=== PATIENT | female | born 1950 | race Caucasian/White ===

== ENCOUNTER 2019-04-08 16:14 | Inpatient (IN) ==
[2019-04-08] MEDS ORDERED: *HR* Dextrose 50 % in Water (Syg) 50 ML SYRINGE IVP PRN (21:08)
[2019-04-08] MEDS ORDERED: Dextrose Gel 15 GM/37.5 ML TUBE PO PRN ×2 (21:08)
[2019-04-08] MEDS ORDERED: D5% in Water 1,000 ML IVC PRN (21:08)
[2019-04-08] MEDS ORDERED: Mag Hydrox/Al Hydrox/Simeth 30 ML UDC PO PRN (21:15)
[2019-04-08] MEDS: Cholecalciferol (D-3) 1,000 UNIT (25MCG) TABLET PO SCH (22:29)
[2019-04-08] MEDS: Vitamin B Complex/Vit C/Vit E 1 EACH TABLET PO SCH (22:29)
[2019-04-08] MEDS: Melatonin 3 MG TABLET PO PRN (22:29)
[2019-04-08] MEDS: *HR* OxyCODONE/APAP 5/325 TABLET PO PRN (22:29)
[2019-04-08] MEDS: Gabapentin 300 MG CAPSULE PO SCH (22:29)
[2019-04-08] MEDS: Insulin LISPRO 300 UNITS/3 ML VIAL SQ SCH (22:30)
[2019-04-08] MEDS: VALERIAN ROOT PO SCH (22:32)
[2019-04-08] MEDS: [UNRECOGNIZED DRUG - OTHER] PO SCH (22:32)
[2019-04-08] MEDS: Ampicillin/Sulbactam 3,000 MG in 0.9 % Sodium Chloride Mini Bag 100 ML IVPB SCH (23:47)
[2019-04-09] MEDS: *HR* Enoxaparin 40 MG/0.4 ML SYRINGE SQ SCH (05:30)
[2019-04-09] MEDS: Ampicillin/Sulbactam 3,000 MG in 0.9 % Sodium Chloride Mini Bag 100 ML IVPB SCH ×3 (05:31→18:00)
[2019-04-09 05:39] LABS: Basophils # 0.1 K/mcL (0.0-0.2); Basophils % 0.8 %; Eosinophils # 0.6 K/mcL (0.0-0.6); Eosinophils % 4.9 %; Hematocrit 31.2 % (35.3-44.9); Hemoglobin 9.9 g/dL (11.5-15.4); Immature Granulocytes % 1.1 % (0-4); Lymphocytes # 3.9 K/mcL (0.6-4.6); Mean Corpuscular HGB Conc 31.7 g/dL (31.6-35.5); Mean Corpuscular Hemoglobin 27.2 pg (28.0-33.3); Mean Corpuscular Volume 85.7 fL (83.0-100.0); Mean Platelet Volume 8.9 fL (9.4-12.4); Monocytes # 0.6 K/mcL (0.0-1.3); Monocytes % 5.5 %; Neutrophils # 6.2 K/mcL (1.6-8.9); Platelet Count 264 K/mcL (140-400); Red Blood Count 3.64 M/mcL (3.82-4.97); Red Cell Distribution Width 13.1 % (11.5-14.5); Segmented Neutrophils % 53.7 %; White Blood Count 11.6 K/mcL (4.3-11.1)
[2019-04-09 05:55] LABS: Calcium 8.4 mg/dL (8.6-10.3); Potassium 4.3 mEq/L (3.5-5.1)
[2019-04-09] MEDS: Vitamin B Complex/Vit C/Vit E 1 EACH TABLET PO SCH (21:03)
[2019-04-09] MEDS: VALERIAN ROOT PO SCH (21:03)
[2019-04-09] MEDS: Gabapentin 300 MG CAPSULE PO SCH (21:03)
[2019-04-09] MEDS: Cholecalciferol (D-3) 1,000 UNIT (25MCG) TABLET PO SCH (21:03)
[2019-04-09] MEDS: [UNRECOGNIZED DRUG - OTHER] PO SCH (21:03)
[2019-04-09] MEDS: *HR* OxyCODONE/APAP 5/325 TABLET PO PRN (21:04)
[2019-04-09] MEDS: Melatonin 3 MG TABLET PO PRN (21:04)
[2019-04-09] MEDS: Insulin LISPRO 300 UNITS/3 ML VIAL SQ SCH (21:05)
[2019-04-10] MEDS: Ampicillin/Sulbactam 3,000 MG in 0.9 % Sodium Chloride Mini Bag 100 ML IVPB SCH ×4 (01:00→22:00)
[2019-04-10] MEDS: *HR* Enoxaparin 40 MG/0.4 ML SYRINGE SQ SCH (06:26)
[2019-04-10] MEDS: Insulin LISPRO 300 UNITS/3 ML VIAL SQ SCH ×4 (08:25→21:46)
[2019-04-10] MEDS: Gabapentin 300 MG CAPSULE PO SCH ×4 (08:30→21:46)
[2019-04-10] MEDS: FLUoxetine 20 MG CAPSULE PO SCH (08:30)
[2019-04-10] MEDS: Furosemide 40 MG TABLET PO SCH (08:30)
[2019-04-10] MEDS: *HR* Glimepiride 4 MG TABLET PO SCH (08:30)
[2019-04-10] MEDS: Insulin DETEMIR 100 UNIT/ML X5UNITS SQ SCH (08:31)
[2019-04-10] MEDS: Acyclovir 200 MG CAPSULE PO SCH ×2 (16:57→21:47)
[2019-04-10] MEDS: *HR* OxyCODONE/APAP 5/325 TABLET PO PRN ×2 (16:58→21:48)
[2019-04-10] MEDS: Nystatin SUSP 5 ML UD.LIQ PO SCH ×2 (16:59→21:46)
[2019-04-10] MEDS ORDERED: Ampicillin/Sulbactam 3,000 MG in 0.9 % Sodium Chloride Mini Bag 100 ML IVPB SCH (20:00)
[2019-04-10] MEDS: [UNRECOGNIZED DRUG - OTHER] PO SCH (21:46)
[2019-04-10] MEDS: VALERIAN ROOT PO SCH (21:46)
[2019-04-10] MEDS: Lactobacillus 1 EACH CAP.SPRINK PO SCH (21:46)
[2019-04-10] MEDS: Terconazole Vag CRM 20 GM TUBE VG SCH (21:47)
[2019-04-10] MEDS: Ascorbic Acid 500 MG TABLET PO SCH (21:47)
[2019-04-10] MEDS: Vitamin B Complex/Vit C/Vit E 1 EACH TABLET PO SCH (21:47)
[2019-04-10] MEDS: Cholecalciferol (D-3) 1,000 UNIT (25MCG) TABLET PO SCH (21:47)
[2019-04-10] MEDS: Melatonin 3 MG TABLET PO PRN (21:48)
[2019-04-11 05:05] LABS: Hematocrit 30.9 % (35.3-44.9); Hemoglobin 9.8 g/dL (11.5-15.4); Mean Corpuscular HGB Conc 31.7 g/dL (31.6-35.5); Mean Corpuscular Hemoglobin 26.9 pg (28.0-33.3); Mean Corpuscular Volume 84.9 fL (83.0-100.0); Mean Platelet Volume 9.6 fL (9.4-12.4); Platelet Count 238 K/mcL (140-400); Red Blood Count 3.64 M/mcL (3.82-4.97); Red Cell Distribution Width 13.2 % (11.5-14.5); White Blood Count 10.9 K/mcL (4.3-11.1)
[2019-04-11 05:21] LABS: Albumin 2.8 g/dL (3.5-5.7); Albumin/Globulin Ratio 0.9 (1.1-2.2); Bilirubin,Total 0.2 mg/dL (0.3-1.0); Calcium 8.7 mg/dL (8.6-10.3); Potassium 3.9 mEq/L (3.5-5.1); Total Protein 5.8 g/dL (6.4-8.9)
[2019-04-11] MEDS: Ampicillin/Sulbactam 3,000 MG in 0.9 % Sodium Chloride Mini Bag 100 ML IVPB SCH ×3 (06:20→22:23)
[2019-04-11] MEDS: *HR* Enoxaparin 40 MG/0.4 ML SYRINGE SQ SCH (06:20)
[2019-04-11] MEDS: Insulin LISPRO 300 UNITS/3 ML VIAL SQ SCH ×4 (07:38→20:08)
[2019-04-11] MEDS: Insulin DETEMIR 100 UNIT/ML X5UNITS SQ SCH (07:39)
[2019-04-11] MEDS: *HR* Glimepiride 4 MG TABLET PO SCH (07:41)
[2019-04-11] MEDS: Ascorbic Acid 500 MG TABLET PO SCH ×2 (07:41→20:00)
[2019-04-11] MEDS: *HR* OxyCODONE/APAP 5/325 TABLET PO PRN ×3 (07:41→20:00)
[2019-04-11] MEDS: Nystatin SUSP 5 ML UD.LIQ PO SCH ×4 (07:41→20:00)
[2019-04-11] MEDS: FLUoxetine 20 MG CAPSULE PO SCH (07:41)
[2019-04-11] MEDS: Gabapentin 300 MG CAPSULE PO SCH ×4 (07:41→20:00)
[2019-04-11] MEDS: Lactobacillus 1 EACH CAP.SPRINK PO SCH ×2 (07:41→20:00)
[2019-04-11] MEDS: Furosemide 40 MG TABLET PO SCH (07:42)
[2019-04-11] MEDS: Acyclovir 200 MG CAPSULE PO SCH ×3 (07:42→21:47)
[2019-04-11 13:28] LABS: % Iron Saturation 16 % (15-50); Iron 35 mcg/dL (50-170); Transferrin 159 mg/dL (203-362)
[2019-04-11 13:35] LABS: Prealbumin 18.4 mg/dL (17.0-34.0)
[2019-04-11] MEDS: Vitamin B Complex/Vit C/Vit E 1 EACH TABLET PO SCH (19:58)
[2019-04-11] MEDS: Cholecalciferol (D-3) 1,000 UNIT (25MCG) TABLET PO SCH (20:00)
[2019-04-11] MEDS: Melatonin 3 MG TABLET PO PRN (20:01)
[2019-04-11] MEDS: Terconazole Vag CRM 20 GM TUBE VG SCH (20:09)
[2019-04-12] MEDS: VALERIAN ROOT PO SCH ×2 (05:45→20:34)
[2019-04-12] MEDS: [UNRECOGNIZED DRUG - OTHER] PO SCH ×2 (05:45→20:34)
[2019-04-12] MEDS: Ampicillin/Sulbactam 3,000 MG in 0.9 % Sodium Chloride Mini Bag 100 ML IVPB SCH ×3 (05:58→22:07)
[2019-04-12] MEDS: *HR* OxyCODONE/APAP 5/325 TABLET PO PRN ×2 (05:58→22:06)
[2019-04-12] MEDS: *HR* Enoxaparin 40 MG/0.4 ML SYRINGE SQ SCH (05:58)
[2019-04-12] MEDS: Insulin LISPRO 300 UNITS/3 ML VIAL SQ SCH ×5 (08:16→20:37)
[2019-04-12] MEDS: Insulin DETEMIR 100 UNIT/ML X5UNITS SQ SCH ×2 (08:17→09:28)
[2019-04-12] MEDS: Acyclovir 200 MG CAPSULE PO SCH ×3 (08:19→20:36)
[2019-04-12] MEDS: FLUoxetine 20 MG CAPSULE PO SCH ×2 (08:20→09:08)
[2019-04-12] MEDS: Iron Polysaccharide Complex 150 MG CAPSULE PO SCH (08:20)
[2019-04-12] MEDS: Furosemide 40 MG TABLET PO SCH ×2 (08:20→09:07)
[2019-04-12] MEDS: Nystatin SUSP 5 ML UD.LIQ PO SCH ×4 (08:21→20:38)
[2019-04-12] MEDS: *HR* Glimepiride 4 MG TABLET PO SCH ×2 (08:21→09:06)
[2019-04-12] MEDS: Gabapentin 300 MG CAPSULE PO SCH ×5 (08:21→20:34)
[2019-04-12] MEDS: Ascorbic Acid 500 MG TABLET PO SCH ×2 (08:21→20:35)
[2019-04-12] MEDS: Lactobacillus 1 EACH CAP.SPRINK PO SCH ×2 (08:21→20:34)
[2019-04-12] MEDS: Vitamin B Complex/Vit C/Vit E 1 EACH TABLET PO SCH (20:35)
[2019-04-12] MEDS: Cholecalciferol (D-3) 1,000 UNIT (25MCG) TABLET PO SCH (20:35)
[2019-04-12] MEDS: Terconazole Vag CRM 20 GM TUBE VG SCH (20:43)
[2019-04-12] MEDS: Melatonin 3 MG TABLET PO PRN (22:06)
[2019-04-13] MEDS: Ampicillin/Sulbactam 3,000 MG in 0.9 % Sodium Chloride Mini Bag 100 ML IVPB SCH ×3 (06:32→21:58)
[2019-04-13] MEDS: *HR* Enoxaparin 40 MG/0.4 ML SYRINGE SQ SCH (06:32)
[2019-04-13] MEDS: Insulin LISPRO 300 UNITS/3 ML VIAL SQ SCH ×4 (08:15→20:57)
[2019-04-13] MEDS: Insulin DETEMIR 100 UNIT/ML X5UNITS SQ SCH (08:16)
[2019-04-13] MEDS: Nystatin SUSP 5 ML UD.LIQ PO SCH ×4 (08:16→20:57)
[2019-04-13] MEDS: Ascorbic Acid 500 MG TABLET PO SCH ×2 (08:16→20:54)
[2019-04-13] MEDS: Lactobacillus 1 EACH CAP.SPRINK PO SCH ×2 (08:16→20:53)
[2019-04-13] MEDS: Gabapentin 300 MG CAPSULE PO SCH ×4 (08:16→20:53)
[2019-04-13] MEDS: FLUoxetine 20 MG CAPSULE PO SCH (08:16)
[2019-04-13] MEDS: Iron Polysaccharide Complex 150 MG CAPSULE PO SCH (08:17)
[2019-04-13] MEDS: *HR* Glimepiride 4 MG TABLET PO SCH (08:17)
[2019-04-13] MEDS: Acyclovir 200 MG CAPSULE PO SCH ×3 (08:17→20:55)
[2019-04-13] MEDS: Furosemide 40 MG TABLET PO SCH (08:17)
[2019-04-13] MEDS: *HR* OxyCODONE/APAP 5/325 TABLET PO PRN ×3 (10:23→20:52)
[2019-04-13] MEDS: VALERIAN ROOT PO SCH (20:53)
[2019-04-13] MEDS: [UNRECOGNIZED DRUG - OTHER] PO SCH (20:53)
[2019-04-13] MEDS: Vitamin B Complex/Vit C/Vit E 1 EACH TABLET PO SCH (20:54)
[2019-04-13] MEDS: Cholecalciferol (D-3) 1,000 UNIT (25MCG) TABLET PO SCH (20:54)
[2019-04-13] MEDS: Melatonin 3 MG TABLET PO PRN (20:55)
[2019-04-13] MEDS: Acetaminophen 325 MG TABLET PO PRN (22:09)
[2019-04-13] MEDS ORDERED: Terconazole Vag CRM 20 GM TUBE VG SCH (22:30)
[2019-04-14] MEDS: *HR* OxyCODONE/APAP 5/325 TABLET PO PRN ×4 (01:14→20:30)
[2019-04-14] MEDS: Ampicillin/Sulbactam 3,000 MG in 0.9 % Sodium Chloride Mini Bag 100 ML IVPB SCH ×3 (05:46→20:39)
[2019-04-14] MEDS: *HR* Enoxaparin 40 MG/0.4 ML SYRINGE SQ SCH (06:23)
[2019-04-14] MEDS: Insulin LISPRO 300 UNITS/3 ML VIAL SQ SCH ×4 (08:22→20:33)
[2019-04-14] MEDS: Iron Polysaccharide Complex 150 MG CAPSULE PO SCH (08:23)
[2019-04-14] MEDS: Acyclovir 200 MG CAPSULE PO SCH ×3 (08:23→20:30)
[2019-04-14] MEDS: Lactobacillus 1 EACH CAP.SPRINK PO SCH ×2 (08:23→20:31)
[2019-04-14] MEDS: *HR* Glimepiride 4 MG TABLET PO SCH (08:23)
[2019-04-14] MEDS: Gabapentin 300 MG CAPSULE PO SCH ×4 (08:23→20:31)
[2019-04-14] MEDS: Ascorbic Acid 500 MG TABLET PO SCH ×2 (08:23→20:31)
[2019-04-14] MEDS: Nystatin SUSP 5 ML UD.LIQ PO SCH ×4 (08:23→20:37)
[2019-04-14] MEDS: Furosemide 40 MG TABLET PO SCH (08:24)
[2019-04-14] MEDS: FLUoxetine 20 MG CAPSULE PO SCH (08:24)
[2019-04-14] MEDS: Insulin DETEMIR 100 UNIT/ML X5UNITS SQ SCH (08:29)
[2019-04-14] MEDS: Cholecalciferol (D-3) 1,000 UNIT (25MCG) TABLET PO SCH (20:30)
[2019-04-14] MEDS: Vitamin B Complex/Vit C/Vit E 1 EACH TABLET PO SCH (20:31)
[2019-04-14] MEDS: VALERIAN ROOT PO SCH (20:33)
[2019-04-14] MEDS: [UNRECOGNIZED DRUG - OTHER] PO SCH (20:33)
[2019-04-15] MEDS: Melatonin 3 MG TABLET PO PRN ×2 (00:58→21:07)
[2019-04-15 05:03] LABS: Basophils # 0.2 K/mcL (0.0-0.2); Basophils % 1.4 %; Eosinophils # 0.4 K/mcL (0.0-0.6); Eosinophils % 3.2 %; Hematocrit 29.7 % (35.3-44.9); Hemoglobin 9.3 g/dL (11.5-15.4); Immature Granulocytes % 0.5 % (0-4); Mean Corpuscular HGB Conc 31.3 g/dL (31.6-35.5); Mean Corpuscular Hemoglobin 26.9 pg (28.0-33.3); Mean Corpuscular Volume 85.8 fL (83.0-100.0); Mean Platelet Volume 10.1 fL (9.4-12.4); Monocytes # 0.6 K/mcL (0.0-1.3); Monocytes % 5.3 %; Neutrophils # 5.9 K/mcL (1.6-8.9); Platelet Count 220 K/mcL (140-400); Red Blood Count 3.46 M/mcL (3.82-4.97); Red Cell Distribution Width 13.4 % (11.5-14.5); Segmented Neutrophils % 53.6 %; White Blood Count 11.1 K/mcL (4.3-11.1)
[2019-04-15 05:17] LABS: Albumin 2.9 g/dL (3.5-5.7); Albumin/Globulin Ratio 0.9 (1.1-2.2); Bilirubin,Total 0.2 mg/dL (0.3-1.0); Calcium 8.9 mg/dL (8.6-10.3); Globulin 3.1 g/dL (2.4-3.5); Potassium 3.8 mEq/L (3.5-5.1)
[2019-04-15] MEDS: *HR* Enoxaparin 40 MG/0.4 ML SYRINGE SQ SCH (05:57)
[2019-04-15] MEDS: Ampicillin/Sulbactam 3,000 MG in 0.9 % Sodium Chloride Mini Bag 100 ML IVPB SCH ×3 (05:58→21:10)
[2019-04-15] MEDS: Furosemide 40 MG TABLET PO SCH (08:15)
[2019-04-15] MEDS: Iron Polysaccharide Complex 150 MG CAPSULE PO SCH (08:15)
[2019-04-15] MEDS: *HR* OxyCODONE/APAP 5/325 TABLET PO PRN ×2 (08:15→21:07)
[2019-04-15] MEDS: Nystatin SUSP 5 ML UD.LIQ PO SCH ×4 (08:15→20:51)
[2019-04-15] MEDS: Lactobacillus 1 EACH CAP.SPRINK PO SCH ×2 (08:15→20:46)
[2019-04-15] MEDS: Acyclovir 200 MG CAPSULE PO SCH ×3 (08:15→20:49)
[2019-04-15] MEDS: Insulin DETEMIR 100 UNIT/ML X5UNITS SQ SCH (08:15)
[2019-04-15] MEDS: FLUoxetine 20 MG CAPSULE PO SCH (08:15)
[2019-04-15] MEDS: Ascorbic Acid 500 MG TABLET PO SCH ×2 (08:16→20:47)
[2019-04-15] MEDS: *HR* Glimepiride 4 MG TABLET PO SCH (08:16)
[2019-04-15] MEDS: Gabapentin 300 MG CAPSULE PO SCH ×4 (08:16→20:46)
[2019-04-15] MEDS: Insulin LISPRO 300 UNITS/3 ML VIAL SQ SCH ×4 (08:19→21:19)
[2019-04-15] MEDS: Vitamin B Complex/Vit C/Vit E 1 EACH TABLET PO SCH (20:47)
[2019-04-15] MEDS: Cholecalciferol (D-3) 1,000 UNIT (25MCG) TABLET PO SCH (20:48)
[2019-04-15] MEDS: VALERIAN ROOT PO SCH (21:23)
[2019-04-15] MEDS: [UNRECOGNIZED DRUG - OTHER] PO SCH (21:23)
[2019-04-16] MEDS: *HR* Enoxaparin 40 MG/0.4 ML SYRINGE SQ SCH (05:38)
[2019-04-16] MEDS: Ampicillin/Sulbactam 3,000 MG in 0.9 % Sodium Chloride Mini Bag 100 ML IVPB SCH ×3 (05:39→22:21)
[2019-04-16] MEDS: FLUoxetine 20 MG CAPSULE PO SCH (08:37)
[2019-04-16] MEDS: *HR* Glimepiride 4 MG TABLET PO SCH (08:37)
[2019-04-16] MEDS: Lactobacillus 1 EACH CAP.SPRINK PO SCH ×2 (08:37→20:34)
[2019-04-16] MEDS: Gabapentin 300 MG CAPSULE PO SCH ×4 (08:37→20:35)
[2019-04-16] MEDS: Furosemide 40 MG TABLET PO SCH (08:37)
[2019-04-16] MEDS: Acyclovir 200 MG CAPSULE PO SCH ×3 (08:37→20:35)
[2019-04-16] MEDS: Nystatin SUSP 5 ML UD.LIQ PO SCH ×4 (08:37→20:34)
[2019-04-16] MEDS: Iron Polysaccharide Complex 150 MG CAPSULE PO SCH (08:37)
[2019-04-16] MEDS: Ascorbic Acid 500 MG TABLET PO SCH ×2 (08:37→20:35)
[2019-04-16] MEDS: Insulin DETEMIR 100 UNIT/ML X5UNITS SQ SCH (08:38)
[2019-04-16] MEDS: Insulin LISPRO 300 UNITS/3 ML VIAL SQ SCH ×4 (08:39→20:33)
[2019-04-16] MEDS: *HR* OxyCODONE/APAP 5/325 TABLET PO PRN ×2 (14:46→20:34)
[2019-04-16] MEDS: Melatonin 3 MG TABLET PO PRN (20:34)
[2019-04-16] MEDS: Vitamin B Complex/Vit C/Vit E 1 EACH TABLET PO SCH (20:35)
[2019-04-16] MEDS: VALERIAN ROOT PO SCH (20:35)
[2019-04-16] MEDS: [UNRECOGNIZED DRUG - OTHER] PO SCH (20:35)
[2019-04-16] MEDS: Cholecalciferol (D-3) 1,000 UNIT (25MCG) TABLET PO SCH (20:35)
[2019-04-17] MEDS: *HR* Enoxaparin 40 MG/0.4 ML SYRINGE SQ SCH (06:14)
[2019-04-17] MEDS: Ampicillin/Sulbactam 3,000 MG in 0.9 % Sodium Chloride Mini Bag 100 ML IVPB SCH ×3 (06:14→21:59)
[2019-04-17] MEDS: Insulin LISPRO 300 UNITS/3 ML VIAL SQ SCH ×4 (08:36→21:59)
[2019-04-17] MEDS: Insulin DETEMIR 100 UNIT/ML X5UNITS SQ SCH (08:36)
[2019-04-17] MEDS: Ascorbic Acid 500 MG TABLET PO SCH ×2 (08:37→22:07)
[2019-04-17] MEDS: Nystatin SUSP 5 ML UD.LIQ PO SCH ×4 (08:37→22:07)
[2019-04-17] MEDS: Furosemide 40 MG TABLET PO SCH (08:37)
[2019-04-17] MEDS: Acyclovir 200 MG CAPSULE PO SCH ×2 (08:37→14:18)
[2019-04-17] MEDS: Gabapentin 300 MG CAPSULE PO SCH ×4 (08:37→22:06)
[2019-04-17] MEDS: Lactobacillus 1 EACH CAP.SPRINK PO SCH ×2 (08:37→22:07)
[2019-04-17] MEDS: Iron Polysaccharide Complex 150 MG CAPSULE PO SCH (08:37)
[2019-04-17] MEDS: *HR* Glimepiride 4 MG TABLET PO SCH (08:38)
[2019-04-17] MEDS: FLUoxetine 20 MG CAPSULE PO SCH (08:38)
[2019-04-17] MEDS: *HR* OxyCODONE/APAP 5/325 TABLET PO PRN ×2 (15:48→20:45)
[2019-04-17] MEDS: [UNRECOGNIZED DRUG - OTHER] PO SCH (22:07)
[2019-04-17] MEDS: Melatonin 3 MG TABLET PO PRN (22:07)
[2019-04-17] MEDS: Vitamin B Complex/Vit C/Vit E 1 EACH TABLET PO SCH (22:07)
[2019-04-17] MEDS: VALERIAN ROOT PO SCH (22:07)
[2019-04-17] MEDS: Cholecalciferol (D-3) 1,000 UNIT (25MCG) TABLET PO SCH (22:07)
[2019-04-18] MEDS: *HR* Enoxaparin 40 MG/0.4 ML SYRINGE SQ SCH (05:33)
[2019-04-18] MEDS: *HR* OxyCODONE/APAP 5/325 TABLET PO PRN ×2 (05:33→21:44)
[2019-04-18] MEDS: Ampicillin/Sulbactam 3,000 MG in 0.9 % Sodium Chloride Mini Bag 100 ML IVPB SCH ×3 (05:34→22:34)
[2019-04-18 06:05] LABS: Basophils # 0.2 K/mcL (0.0-0.2); Basophils % 1.8 %; Eosinophils # 0.5 K/mcL (0.0-0.6); Eosinophils % 4.3 %; Hematocrit 33.9 % (35.3-44.9); Hemoglobin 10.7 g/dL (11.5-15.4); Immature Granulocytes % 0.4 % (0-4); Lymphocytes # 4.1 K/mcL (0.6-4.6); Lymphocytes % 37.9 %; Mean Corpuscular HGB Conc 31.6 g/dL (31.6-35.5); Mean Corpuscular Hemoglobin 27.2 pg (28.0-33.3); Mean Platelet Volume 10.6 fL (9.4-12.4); Monocytes # 0.7 K/mcL (0.0-1.3); Monocytes % 6.1 %; Neutrophils # 5.4 K/mcL (1.6-8.9); Platelet Count 250 K/mcL (140-400); Red Blood Count 3.94 M/mcL (3.82-4.97); Red Cell Distribution Width 13.7 % (11.5-14.5); Segmented Neutrophils % 49.5 %; White Blood Count 10.8 K/mcL (4.3-11.1)
[2019-04-18 06:20] LABS: Albumin 3.3 g/dL (3.5-5.7); Albumin/Globulin Ratio 0.9 (1.1-2.2); Bilirubin,Total 0.2 mg/dL (0.3-1.0); Calcium 9.4 mg/dL (8.6-10.3); Globulin 3.5 g/dL (2.4-3.5); Potassium 3.7 mEq/L (3.5-5.1); Total Protein 6.8 g/dL (6.4-8.9)
[2019-04-18] MEDS: Gabapentin 300 MG CAPSULE PO SCH ×4 (08:41→22:42)
[2019-04-18] MEDS: Iron Polysaccharide Complex 150 MG CAPSULE PO SCH (08:41)
[2019-04-18] MEDS: FLUoxetine 20 MG CAPSULE PO SCH (08:41)
[2019-04-18] MEDS: Cyanocobalamin (B-12) 1,000 MCG TABLET PO SCH (08:41)
[2019-04-18] MEDS: *HR* Glimepiride 4 MG TABLET PO SCH (08:41)
[2019-04-18] MEDS: Nystatin SUSP 5 ML UD.LIQ PO SCH ×4 (08:41→22:43)
[2019-04-18] MEDS: Furosemide 40 MG TABLET PO SCH (08:41)
[2019-04-18] MEDS: Insulin LISPRO 300 UNITS/3 ML VIAL SQ SCH ×4 (08:42→22:42)
[2019-04-18] MEDS: Lactobacillus 1 EACH CAP.SPRINK PO SCH ×2 (08:43→22:41)
[2019-04-18] MEDS: Insulin DETEMIR 100 UNIT/ML X5UNITS SQ SCH (08:46)
[2019-04-18] MEDS: Ascorbic Acid 500 MG TABLET PO SCH ×2 (08:47→22:41)
[2019-04-18] MEDS ORDERED: Iron Sucrose Complex 250 MG in 0.9 % Sodium Chloride 250 ML IVPB ONE (09:00)
[2019-04-18] MEDS: Vitamin B Complex/Vit C/Vit E 1 EACH TABLET PO SCH (22:41)
[2019-04-18] MEDS: Cholecalciferol (D-3) 1,000 UNIT (25MCG) TABLET PO SCH (22:42)
[2019-04-18] MEDS: [UNRECOGNIZED DRUG - OTHER] PO SCH (22:43)
[2019-04-18] MEDS: VALERIAN ROOT PO SCH (22:44)
[2019-04-18] MEDS: Sennosides/Docusate Sodium TABLET PO PRN (22:48)
[2019-04-18] MEDS: Acetaminophen 325 MG TABLET PO PRN (23:49)
[2019-04-19] MEDS: *HR* OxyCODONE/APAP 5/325 TABLET PO PRN ×4 (01:50→22:33)
[2019-04-19] MEDS: Melatonin 3 MG TABLET PO PRN ×2 (01:50→21:35)
[2019-04-19] MEDS ORDERED: *HR* OxyCODONE/APAP 5/325 TABLET PO ONE (04:08)
[2019-04-19] MEDS: Ampicillin/Sulbactam 3,000 MG in 0.9 % Sodium Chloride Mini Bag 100 ML IVPB SCH ×3 (04:20→21:45)
[2019-04-19] MEDS: *HR* Enoxaparin 40 MG/0.4 ML SYRINGE SQ SCH (04:20)
[2019-04-19] MEDS: FLUoxetine 20 MG CAPSULE PO SCH (08:13)
[2019-04-19] MEDS: Nystatin SUSP 5 ML UD.LIQ PO SCH ×4 (08:13→21:34)
[2019-04-19] MEDS: Gabapentin 300 MG CAPSULE PO SCH ×4 (08:13→21:34)
[2019-04-19] MEDS: Ascorbic Acid 500 MG TABLET PO SCH ×2 (08:13→21:35)
[2019-04-19] MEDS: Sennosides/Docusate Sodium TABLET PO PRN ×2 (08:13→22:33)
[2019-04-19] MEDS: Iron Polysaccharide Complex 150 MG CAPSULE PO SCH (08:13)
[2019-04-19] MEDS: Cyanocobalamin (B-12) 1,000 MCG TABLET PO SCH (08:13)
[2019-04-19] MEDS: *HR* Glimepiride 4 MG TABLET PO SCH (08:14)
[2019-04-19] MEDS: Insulin LISPRO 300 UNITS/3 ML VIAL SQ SCH ×4 (08:14→21:35)
[2019-04-19] MEDS: Insulin DETEMIR 100 UNIT/ML X5UNITS SQ SCH (08:14)
[2019-04-19] MEDS: Lactobacillus 1 EACH CAP.SPRINK PO SCH ×2 (08:14→21:34)
[2019-04-19] MEDS: Furosemide 40 MG TABLET PO SCH (08:14)
[2019-04-19] MEDS: [UNRECOGNIZED DRUG - OTHER] PO SCH (21:34)
[2019-04-19] MEDS: Vitamin B Complex/Vit C/Vit E 1 EACH TABLET PO SCH (21:35)
[2019-04-19] MEDS: VALERIAN ROOT PO SCH (21:35)
[2019-04-19] MEDS: Cholecalciferol (D-3) 1,000 UNIT (25MCG) TABLET PO SCH (21:35)
[2019-04-20] MEDS: *HR* Enoxaparin 40 MG/0.4 ML SYRINGE SQ SCH (05:50)
[2019-04-20] MEDS: Ampicillin/Sulbactam 3,000 MG in 0.9 % Sodium Chloride Mini Bag 100 ML IVPB SCH ×3 (05:50→21:01)
[2019-04-20] MEDS: Nystatin SUSP 5 ML UD.LIQ PO SCH ×4 (07:55→20:59)
[2019-04-20] MEDS: Insulin LISPRO 300 UNITS/3 ML VIAL SQ SCH ×4 (07:55→21:00)
[2019-04-20] MEDS: Sennosides/Docusate Sodium TABLET PO PRN ×2 (07:56→21:00)
[2019-04-20] MEDS: Furosemide 40 MG TABLET PO SCH (07:56)
[2019-04-20] MEDS: Lactobacillus 1 EACH CAP.SPRINK PO SCH ×2 (07:56→20:59)
[2019-04-20] MEDS: Cyanocobalamin (B-12) 1,000 MCG TABLET PO SCH (07:56)
[2019-04-20] MEDS: Gabapentin 300 MG CAPSULE PO SCH ×4 (07:56→20:59)
[2019-04-20] MEDS: FLUoxetine 20 MG CAPSULE PO SCH (07:56)
[2019-04-20] MEDS: Iron Polysaccharide Complex 150 MG CAPSULE PO SCH (07:56)
[2019-04-20] MEDS: Ascorbic Acid 500 MG TABLET PO SCH ×2 (07:56→21:00)
[2019-04-20] MEDS: *HR* Glimepiride 4 MG TABLET PO SCH (07:57)
[2019-04-20] MEDS: Insulin DETEMIR 100 UNIT/ML X5UNITS SQ SCH (07:57)
[2019-04-20] MEDS: *HR* OxyCODONE/APAP 5/325 TABLET PO PRN ×2 (17:04→21:00)
[2019-04-20] MEDS: VALERIAN ROOT PO SCH (21:00)
[2019-04-20] MEDS: Cholecalciferol (D-3) 1,000 UNIT (25MCG) TABLET PO SCH (21:00)
[2019-04-20] MEDS: Melatonin 3 MG TABLET PO PRN (21:00)
[2019-04-20] MEDS: Vitamin B Complex/Vit C/Vit E 1 EACH TABLET PO SCH (21:00)
[2019-04-20] MEDS: [UNRECOGNIZED DRUG - OTHER] PO SCH (21:00)
[2019-04-21] MEDS: Ampicillin/Sulbactam 3,000 MG in 0.9 % Sodium Chloride Mini Bag 100 ML IVPB SCH ×4 (01:23→21:10)
[2019-04-21] MEDS: *HR* OxyCODONE/APAP 5/325 TABLET PO PRN ×3 (01:23→21:21)
[2019-04-21] MEDS: *HR* Enoxaparin 40 MG/0.4 ML SYRINGE SQ SCH (06:22)
[2019-04-21] MEDS: Nystatin SUSP 5 ML UD.LIQ PO SCH ×4 (08:29→21:28)
[2019-04-21] MEDS: FLUoxetine 20 MG CAPSULE PO SCH (08:30)
[2019-04-21] MEDS: Gabapentin 300 MG CAPSULE PO SCH ×4 (08:30→21:25)
[2019-04-21] MEDS: Cyanocobalamin (B-12) 1,000 MCG TABLET PO SCH (08:31)
[2019-04-21] MEDS: Iron Polysaccharide Complex 150 MG CAPSULE PO SCH (08:31)
[2019-04-21] MEDS: Lactobacillus 1 EACH CAP.SPRINK PO SCH ×2 (08:31→21:23)
[2019-04-21] MEDS: *HR* Glimepiride 4 MG TABLET PO SCH (08:31)
[2019-04-21] MEDS: Furosemide 40 MG TABLET PO SCH (08:32)
[2019-04-21] MEDS: Ascorbic Acid 500 MG TABLET PO SCH ×2 (08:32→21:24)
[2019-04-21] MEDS: Insulin LISPRO 300 UNITS/3 ML VIAL SQ SCH ×4 (08:33→21:12)
[2019-04-21] MEDS: Insulin DETEMIR 100 UNIT/ML X5UNITS SQ SCH (08:43)
[2019-04-21] MEDS: Cholecalciferol (D-3) 1,000 UNIT (25MCG) TABLET PO SCH (21:22)
[2019-04-21] MEDS: Vitamin B Complex/Vit C/Vit E 1 EACH TABLET PO SCH (21:23)
[2019-04-21] MEDS: Melatonin 3 MG TABLET PO PRN (21:27)
[2019-04-21] MEDS: VALERIAN ROOT PO SCH (21:30)
[2019-04-21] MEDS: [UNRECOGNIZED DRUG - OTHER] PO SCH (21:30)
[2019-04-22] MEDS: Ampicillin/Sulbactam 3,000 MG in 0.9 % Sodium Chloride Mini Bag 100 ML IVPB SCH ×4 (02:42→20:41)
[2019-04-22] MEDS: *HR* OxyCODONE/APAP 5/325 TABLET PO PRN (02:54)
[2019-04-22] MEDS: *HR* Enoxaparin 40 MG/0.4 ML SYRINGE SQ SCH (06:46)
[2019-04-22] MEDS: Insulin LISPRO 300 UNITS/3 ML VIAL SQ SCH ×4 (08:56→21:59)
[2019-04-22] MEDS: FLUoxetine 20 MG CAPSULE PO SCH (09:01)
[2019-04-22] MEDS: Ascorbic Acid 500 MG TABLET PO SCH ×2 (09:01→22:01)
[2019-04-22] MEDS: Iron Polysaccharide Complex 150 MG CAPSULE PO SCH (09:01)
[2019-04-22] MEDS: Lactobacillus 1 EACH CAP.SPRINK PO SCH ×2 (09:01→22:03)
[2019-04-22] MEDS: *HR* Glimepiride 4 MG TABLET PO SCH (09:01)
[2019-04-22] MEDS: Gabapentin 300 MG CAPSULE PO SCH ×4 (09:01→22:01)
[2019-04-22] MEDS: Furosemide 40 MG TABLET PO SCH (09:01)
[2019-04-22] MEDS: Cyanocobalamin (B-12) 1,000 MCG TABLET PO SCH (09:01)
[2019-04-22] MEDS: Nystatin SUSP 5 ML UD.LIQ PO SCH ×4 (09:02→22:03)
[2019-04-22] MEDS: Sennosides/Docusate Sodium TABLET PO PRN (09:14)
[2019-04-22] MEDS: Insulin DETEMIR 100 UNIT/ML X5UNITS SQ SCH (09:14)
[2019-04-22] MEDS: Cholecalciferol (D-3) 1,000 UNIT (25MCG) TABLET PO SCH (22:01)
[2019-04-22] MEDS: Melatonin 3 MG TABLET PO PRN (22:02)
[2019-04-22] MEDS: Vitamin B Complex/Vit C/Vit E 1 EACH TABLET PO SCH (22:02)
[2019-04-22] MEDS: Acetaminophen 325 MG TABLET PO PRN (22:02)
[2019-04-22] MEDS: [UNRECOGNIZED DRUG - OTHER] PO SCH (22:56)
[2019-04-22] MEDS: VALERIAN ROOT PO SCH (22:56)
[2019-04-23] MEDS: Ampicillin/Sulbactam 3,000 MG in 0.9 % Sodium Chloride Mini Bag 100 ML IVPB SCH ×4 (02:37→19:31)
[2019-04-23] MEDS: *HR* Enoxaparin 40 MG/0.4 ML SYRINGE SQ SCH (06:20)
[2019-04-23] MEDS: Acetaminophen 325 MG TABLET PO PRN ×2 (06:20→20:24)
[2019-04-23] MEDS: Insulin LISPRO 300 UNITS/3 ML VIAL SQ SCH ×4 (08:34→20:41)
[2019-04-23] MEDS: Insulin DETEMIR 100 UNIT/ML X5UNITS SQ SCH (08:48)
[2019-04-23] MEDS: FLUoxetine 20 MG CAPSULE PO SCH (08:49)
[2019-04-23] MEDS: Gabapentin 300 MG CAPSULE PO SCH ×4 (08:49→20:24)
[2019-04-23] MEDS: Nystatin SUSP 5 ML UD.LIQ PO SCH ×4 (08:49→20:24)
[2019-04-23] MEDS: Iron Polysaccharide Complex 150 MG CAPSULE PO SCH (08:49)
[2019-04-23] MEDS: Ascorbic Acid 500 MG TABLET PO SCH ×2 (08:50→20:24)
[2019-04-23] MEDS: Cyanocobalamin (B-12) 1,000 MCG TABLET PO SCH (08:50)
[2019-04-23] MEDS: Furosemide 40 MG TABLET PO SCH (08:50)
[2019-04-23] MEDS: *HR* Glimepiride 4 MG TABLET PO SCH (08:50)
[2019-04-23] MEDS: Lactobacillus 1 EACH CAP.SPRINK PO SCH ×2 (08:50→20:24)
[2019-04-23] MEDS: Vitamin B Complex/Vit C/Vit E 1 EACH TABLET PO SCH (20:24)
[2019-04-23] MEDS: Cholecalciferol (D-3) 1,000 UNIT (25MCG) TABLET PO SCH (20:24)
[2019-04-23] MEDS: Melatonin 3 MG TABLET PO PRN (20:36)
[2019-04-23] MEDS: [UNRECOGNIZED DRUG - OTHER] PO SCH (20:42)
[2019-04-23] MEDS: VALERIAN ROOT PO SCH (20:42)
[2019-04-24] MEDS: Ampicillin/Sulbactam 3,000 MG in 0.9 % Sodium Chloride Mini Bag 100 ML IVPB SCH ×4 (02:14→19:25)
[2019-04-24] MEDS: *HR* Enoxaparin 40 MG/0.4 ML SYRINGE SQ SCH (05:46)
[2019-04-24] MEDS: Insulin LISPRO 300 UNITS/3 ML VIAL SQ SCH ×4 (07:18→20:14)
[2019-04-24] MEDS: Insulin DETEMIR 100 UNIT/ML X5UNITS SQ SCH (08:11)
[2019-04-24] MEDS: Lactobacillus 1 EACH CAP.SPRINK PO SCH ×2 (08:13→20:13)
[2019-04-24] MEDS: Nystatin SUSP 5 ML UD.LIQ PO SCH ×3 (08:14→16:58)
[2019-04-24] MEDS: Cyanocobalamin (B-12) 1,000 MCG TABLET PO SCH (08:14)
[2019-04-24] MEDS: *HR* Glimepiride 4 MG TABLET PO SCH (08:14)
[2019-04-24] MEDS: Furosemide 40 MG TABLET PO SCH (08:14)
[2019-04-24] MEDS: Ascorbic Acid 500 MG TABLET PO SCH ×2 (08:14→20:13)
[2019-04-24] MEDS: Sennosides/Docusate Sodium TABLET PO PRN (08:14)
[2019-04-24] MEDS: Iron Polysaccharide Complex 150 MG CAPSULE PO SCH (08:14)
[2019-04-24] MEDS: Gabapentin 300 MG CAPSULE PO SCH ×4 (08:14→20:12)
[2019-04-24] MEDS: FLUoxetine 20 MG CAPSULE PO SCH (08:14)
[2019-04-24] MEDS: Acetaminophen 325 MG TABLET PO PRN ×2 (11:51→19:24)
[2019-04-24] MEDS: Vitamin B Complex/Vit C/Vit E 1 EACH TABLET PO SCH (20:12)
[2019-04-24] MEDS: [UNRECOGNIZED DRUG - OTHER] PO SCH (20:13)
[2019-04-24] MEDS: Cholecalciferol (D-3) 1,000 UNIT (25MCG) TABLET PO SCH (20:13)
[2019-04-24] MEDS: VALERIAN ROOT PO SCH (20:16)
[2019-04-24] MEDS: Melatonin 3 MG TABLET PO PRN (22:23)
[2019-04-25] MEDS: Ampicillin/Sulbactam 3,000 MG in 0.9 % Sodium Chloride Mini Bag 100 ML IVPB SCH ×4 (02:12→19:38)
[2019-04-25] MEDS: Acetaminophen 325 MG TABLET PO PRN (05:33)
[2019-04-25] MEDS: *HR* Enoxaparin 40 MG/0.4 ML SYRINGE SQ SCH (05:34)
[2019-04-25 06:09] LABS: Basophils # 0.1 K/mcL (0.0-0.2); Basophils % 0.9 %; Eosinophils # 0.5 K/mcL (0.0-0.6); Eosinophils % 4.5 %; Hematocrit 30.6 % (35.3-44.9); Hemoglobin 9.7 g/dL (11.5-15.4); Immature Granulocytes % 0.3 % (0-4); Lymphocytes # 2.5 K/mcL (0.6-4.6); Lymphocytes % 24.9 %; Mean Corpuscular HGB Conc 31.7 g/dL (31.6-35.5); Mean Corpuscular Hemoglobin 27.3 pg (28.0-33.3); Mean Corpuscular Volume 86.2 fL (83.0-100.0); Mean Platelet Volume 10.3 fL (9.4-12.4); Monocytes # 0.7 K/mcL (0.0-1.3); Monocytes % 6.9 %; Neutrophils # 6.2 K/mcL (1.6-8.9); Platelet Count 201 K/mcL (140-400); Red Blood Count 3.55 M/mcL (3.82-4.97); Red Cell Distribution Width 14.6 % (11.5-14.5); Segmented Neutrophils % 62.5 %
[2019-04-25 06:24] LABS: Albumin 3.1 g/dL (3.5-5.7); Bilirubin,Total 0.4 mg/dL (0.3-1.0); Calcium 8.6 mg/dL (8.6-10.3); Globulin 3.1 g/dL (2.4-3.5); Potassium 3.5 mEq/L (3.5-5.1); Total Protein 6.2 g/dL (6.4-8.9)
[2019-04-25] MEDS: Insulin LISPRO 300 UNITS/3 ML VIAL SQ SCH ×4 (08:07→22:36)
[2019-04-25] MEDS: Ascorbic Acid 500 MG TABLET PO SCH ×2 (08:09→22:16)
[2019-04-25] MEDS: FLUoxetine 20 MG CAPSULE PO SCH (08:09)
[2019-04-25] MEDS: Cyanocobalamin (B-12) 1,000 MCG TABLET PO SCH (08:09)
[2019-04-25] MEDS: Furosemide 40 MG TABLET PO SCH (08:09)
[2019-04-25] MEDS: Iron Polysaccharide Complex 150 MG CAPSULE PO SCH (08:09)
[2019-04-25] MEDS: Gabapentin 300 MG CAPSULE PO SCH ×4 (08:09→22:16)
[2019-04-25] MEDS: Lactobacillus 1 EACH CAP.SPRINK PO SCH ×2 (08:09→22:17)
[2019-04-25] MEDS: *HR* Glimepiride 4 MG TABLET PO SCH (08:10)
[2019-04-25] MEDS: Insulin DETEMIR 100 UNIT/ML X5UNITS SQ SCH (09:24)
[2019-04-25] MEDS: Vitamin B Complex/Vit C/Vit E 1 EACH TABLET PO SCH (22:16)
[2019-04-25] MEDS: Cholecalciferol (D-3) 1,000 UNIT (25MCG) TABLET PO SCH (22:17)
[2019-04-25] MEDS: Melatonin 3 MG TABLET PO PRN (22:51)
[2019-04-26] MEDS: [UNRECOGNIZED DRUG - OTHER] PO SCH ×2 (02:09→21:02)
[2019-04-26] MEDS: VALERIAN ROOT PO SCH ×2 (02:09→20:16)
[2019-04-26] MEDS: Ampicillin/Sulbactam 3,000 MG in 0.9 % Sodium Chloride Mini Bag 100 ML IVPB SCH ×4 (02:11→20:10)
[2019-04-26] MEDS: *HR* Enoxaparin 40 MG/0.4 ML SYRINGE SQ SCH (06:31)
[2019-04-26] MEDS: Acetaminophen 325 MG TABLET PO PRN (06:51)
[2019-04-26] MEDS: Insulin LISPRO 300 UNITS/3 ML VIAL SQ SCH ×4 (07:56→20:15)
[2019-04-26] MEDS: Furosemide 40 MG TABLET PO SCH (08:48)
[2019-04-26] MEDS: Ascorbic Acid 500 MG TABLET PO SCH ×2 (08:48→20:59)
[2019-04-26] MEDS: FLUoxetine 20 MG CAPSULE PO SCH (08:48)
[2019-04-26] MEDS: *HR* Glimepiride 4 MG TABLET PO SCH (08:48)
[2019-04-26] MEDS: Gabapentin 300 MG CAPSULE PO SCH ×4 (08:48→20:58)
[2019-04-26] MEDS: Cyanocobalamin (B-12) 1,000 MCG TABLET PO SCH (08:48)
[2019-04-26] MEDS: Iron Polysaccharide Complex 150 MG CAPSULE PO SCH (08:48)
[2019-04-26] MEDS: Lactobacillus 1 EACH CAP.SPRINK PO SCH ×2 (08:48→20:58)
[2019-04-26] MEDS: Insulin DETEMIR 100 UNIT/ML X5UNITS SQ SCH (10:22)
[2019-04-26] MEDS: clonazePAM 0.5 MG TABLET PO PRN (12:39)
[2019-04-26] MEDS: Cholecalciferol (D-3) 1,000 UNIT (25MCG) TABLET PO SCH (20:58)
[2019-04-26] MEDS: Vitamin B Complex/Vit C/Vit E 1 EACH TABLET PO SCH (20:58)
[2019-04-26] MEDS: Melatonin 3 MG TABLET PO PRN (20:58)
[2019-04-26] MEDS: Sennosides/Docusate Sodium TABLET PO PRN (21:04)
[2019-04-27] MEDS: Ampicillin/Sulbactam 3,000 MG in 0.9 % Sodium Chloride Mini Bag 100 ML IVPB SCH ×4 (02:15→20:47)
[2019-04-27] MEDS: *HR* Enoxaparin 40 MG/0.4 ML SYRINGE SQ SCH (06:08)
[2019-04-27] MEDS: Insulin LISPRO 300 UNITS/3 ML VIAL SQ SCH ×4 (08:45→20:45)
[2019-04-27] MEDS: Gabapentin 300 MG CAPSULE PO SCH ×4 (08:55→20:45)
[2019-04-27] MEDS: Sennosides/Docusate Sodium TABLET PO PRN ×2 (08:55→20:46)
[2019-04-27] MEDS: Iron Polysaccharide Complex 150 MG CAPSULE PO SCH (08:55)
[2019-04-27] MEDS: Ascorbic Acid 500 MG TABLET PO SCH ×2 (08:55→20:45)
[2019-04-27] MEDS: Furosemide 40 MG TABLET PO SCH (08:55)
[2019-04-27] MEDS: FLUoxetine 20 MG CAPSULE PO SCH (08:55)
[2019-04-27] MEDS: Lactobacillus 1 EACH CAP.SPRINK PO SCH ×2 (08:55→20:45)
[2019-04-27] MEDS: *HR* Glimepiride 4 MG TABLET PO SCH (08:55)
[2019-04-27] MEDS: Cyanocobalamin (B-12) 1,000 MCG TABLET PO SCH (08:56)
[2019-04-27] MEDS: Insulin DETEMIR 100 UNIT/ML X5UNITS SQ SCH (09:00)
[2019-04-27] MEDS: [UNRECOGNIZED DRUG - OTHER] PO SCH (20:45)
[2019-04-27] MEDS: VALERIAN ROOT PO SCH (20:45)
[2019-04-27] MEDS: Vitamin B Complex/Vit C/Vit E 1 EACH TABLET PO SCH (20:45)
[2019-04-27] MEDS: Melatonin 3 MG TABLET PO PRN (20:46)
[2019-04-27] MEDS: Cholecalciferol (D-3) 1,000 UNIT (25MCG) TABLET PO SCH (20:46)
[2019-04-28] MEDS: Ampicillin/Sulbactam 3,000 MG in 0.9 % Sodium Chloride Mini Bag 100 ML IVPB SCH ×4 (03:32→19:52)
[2019-04-28] MEDS: *HR* Enoxaparin 40 MG/0.4 ML SYRINGE SQ SCH (06:00)
[2019-04-28] MEDS: Lactobacillus 1 EACH CAP.SPRINK PO SCH ×2 (07:55→19:58)
[2019-04-28] MEDS: Gabapentin 300 MG CAPSULE PO SCH ×4 (07:55→19:56)
[2019-04-28] MEDS: Iron Polysaccharide Complex 150 MG CAPSULE PO SCH (07:56)
[2019-04-28] MEDS: *HR* Glimepiride 4 MG TABLET PO SCH (07:56)
[2019-04-28] MEDS: Furosemide 40 MG TABLET PO SCH (07:56)
[2019-04-28] MEDS: FLUoxetine 20 MG CAPSULE PO SCH (07:56)
[2019-04-28] MEDS: Ascorbic Acid 500 MG TABLET PO SCH ×2 (07:56→19:58)
[2019-04-28] MEDS: Insulin LISPRO 300 UNITS/3 ML VIAL SQ SCH ×4 (07:57→19:59)
[2019-04-28] MEDS: Insulin DETEMIR 100 UNIT/ML X5UNITS SQ SCH (07:57)
[2019-04-28] MEDS: Cyanocobalamin (B-12) 1,000 MCG TABLET PO SCH (07:57)
[2019-04-28] MEDS: Sennosides/Docusate Sodium TABLET PO PRN ×2 (10:32→19:57)
[2019-04-28] MEDS: Acetaminophen 325 MG TABLET PO PRN (19:57)
[2019-04-28] MEDS: Cholecalciferol (D-3) 1,000 UNIT (25MCG) TABLET PO SCH (19:58)
[2019-04-28] MEDS: Vitamin B Complex/Vit C/Vit E 1 EACH TABLET PO SCH (19:58)
[2019-04-28] MEDS: VALERIAN ROOT PO SCH (20:02)
[2019-04-28] MEDS: [UNRECOGNIZED DRUG - OTHER] PO SCH (20:02)
[2019-04-28] MEDS: Melatonin 3 MG TABLET PO PRN (22:58)
[2019-04-29] MEDS: Ampicillin/Sulbactam 3,000 MG in 0.9 % Sodium Chloride Mini Bag 100 ML IVPB SCH ×4 (01:52→20:23)
[2019-04-29] MEDS: *HR* Enoxaparin 40 MG/0.4 ML SYRINGE SQ SCH (05:52)
[2019-04-29] MEDS: Lactobacillus 1 EACH CAP.SPRINK PO SCH ×2 (08:09→20:27)
[2019-04-29] MEDS: Iron Polysaccharide Complex 150 MG CAPSULE PO SCH (08:09)
[2019-04-29] MEDS: Gabapentin 300 MG CAPSULE PO SCH ×4 (08:09→20:26)
[2019-04-29] MEDS: Sennosides/Docusate Sodium TABLET PO PRN ×2 (08:09→20:28)
[2019-04-29] MEDS: Cyanocobalamin (B-12) 1,000 MCG TABLET PO SCH (08:09)
[2019-04-29] MEDS: FLUoxetine 20 MG CAPSULE PO SCH (08:09)
[2019-04-29] MEDS: Furosemide 40 MG TABLET PO SCH (08:10)
[2019-04-29] MEDS: *HR* Glimepiride 4 MG TABLET PO SCH (08:10)
[2019-04-29] MEDS: Ascorbic Acid 500 MG TABLET PO SCH ×2 (08:10→20:27)
[2019-04-29] MEDS: Insulin DETEMIR 100 UNIT/ML X5UNITS SQ SCH (08:12)
[2019-04-29] MEDS: Insulin LISPRO 300 UNITS/3 ML VIAL SQ SCH ×4 (08:13→21:25)
[2019-04-29] MEDS: Cholecalciferol (D-3) 1,000 UNIT (25MCG) TABLET PO SCH (20:26)
[2019-04-29] MEDS: [UNRECOGNIZED DRUG - OTHER] PO SCH (20:27)
[2019-04-29] MEDS: Melatonin 3 MG TABLET PO PRN (20:27)
[2019-04-29] MEDS: Vitamin B Complex/Vit C/Vit E 1 EACH TABLET PO SCH (20:27)
[2019-04-29] MEDS: VALERIAN ROOT PO SCH (20:28)
[2019-04-30] MEDS: Ampicillin/Sulbactam 3,000 MG in 0.9 % Sodium Chloride Mini Bag 100 ML IVPB SCH ×4 (01:37→20:55)
[2019-04-30] MEDS: *HR* Enoxaparin 40 MG/0.4 ML SYRINGE SQ SCH (04:18)
[2019-04-30] MEDS: Ascorbic Acid 500 MG TABLET PO SCH ×2 (09:15→20:54)
[2019-04-30] MEDS: Iron Polysaccharide Complex 150 MG CAPSULE PO SCH (09:15)
[2019-04-30] MEDS: Furosemide 40 MG TABLET PO SCH (09:15)
[2019-04-30] MEDS: Gabapentin 300 MG CAPSULE PO SCH ×4 (09:15→20:54)
[2019-04-30] MEDS: Cyanocobalamin (B-12) 1,000 MCG TABLET PO SCH (09:16)
[2019-04-30] MEDS: Lactobacillus 1 EACH CAP.SPRINK PO SCH ×2 (09:16→20:54)
[2019-04-30] MEDS: FLUoxetine 20 MG CAPSULE PO SCH (09:16)
[2019-04-30] MEDS: *HR* Glimepiride 4 MG TABLET PO SCH (09:16)
[2019-04-30] MEDS: Insulin LISPRO 300 UNITS/3 ML VIAL SQ SCH ×4 (09:21→20:55)
[2019-04-30] MEDS: Insulin DETEMIR 100 UNIT/ML X5UNITS SQ SCH (09:22)
[2019-04-30] MEDS: Cholecalciferol (D-3) 1,000 UNIT (25MCG) TABLET PO SCH (20:54)
[2019-04-30] MEDS: VALERIAN ROOT PO SCH (20:54)
[2019-04-30] MEDS: [UNRECOGNIZED DRUG - OTHER] PO SCH (20:54)
[2019-04-30] MEDS: Vitamin B Complex/Vit C/Vit E 1 EACH TABLET PO SCH (20:54)
[2019-04-30] MEDS: Sennosides/Docusate Sodium TABLET PO PRN (20:55)
[2019-04-30] MEDS: Melatonin 3 MG TABLET PO PRN (20:55)
[2019-05-01] MEDS: Ampicillin/Sulbactam 3,000 MG in 0.9 % Sodium Chloride Mini Bag 100 ML IVPB SCH ×4 (02:26→21:18)
[2019-05-01] MEDS: *HR* Enoxaparin 40 MG/0.4 ML SYRINGE SQ SCH (05:56)
[2019-05-01] MEDS: Acetaminophen 325 MG TABLET PO PRN (06:37)
[2019-05-01] MEDS: Furosemide 40 MG TABLET PO SCH (08:55)
[2019-05-01] MEDS: Gabapentin 300 MG CAPSULE PO SCH ×4 (08:55→21:17)
[2019-05-01] MEDS: FLUoxetine 20 MG CAPSULE PO SCH (08:56)
[2019-05-01] MEDS: Iron Polysaccharide Complex 150 MG CAPSULE PO SCH (08:56)
[2019-05-01] MEDS: Cyanocobalamin (B-12) 1,000 MCG TABLET PO SCH (08:56)
[2019-05-01] MEDS: Sennosides/Docusate Sodium TABLET PO PRN ×2 (08:56→21:18)
[2019-05-01] MEDS: Lactobacillus 1 EACH CAP.SPRINK PO SCH ×2 (08:56→21:16)
[2019-05-01] MEDS: *HR* Glimepiride 4 MG TABLET PO SCH (08:56)
[2019-05-01] MEDS: Ascorbic Acid 500 MG TABLET PO SCH ×2 (08:56→21:17)
[2019-05-01] MEDS: Insulin LISPRO 300 UNITS/3 ML VIAL SQ SCH ×4 (08:57→21:17)
[2019-05-01] MEDS: Insulin DETEMIR 100 UNIT/ML X5UNITS SQ SCH (08:59)
[2019-05-01] MEDS: clonazePAM 0.5 MG TABLET PO PRN (09:32)
[2019-05-01] MEDS: Vitamin B Complex/Vit C/Vit E 1 EACH TABLET PO SCH (21:17)
[2019-05-01] MEDS: Cholecalciferol (D-3) 1,000 UNIT (25MCG) TABLET PO SCH (21:17)
[2019-05-01] MEDS: [UNRECOGNIZED DRUG - OTHER] PO SCH (21:17)
[2019-05-01] MEDS: VALERIAN ROOT PO SCH (21:17)
[2019-05-01] MEDS: Melatonin 3 MG TABLET PO PRN (21:18)
[2019-05-02] MEDS: Ampicillin/Sulbactam 3,000 MG in 0.9 % Sodium Chloride Mini Bag 100 ML IVPB SCH ×4 (02:34→19:56)
[2019-05-02] MEDS: *HR* Enoxaparin 40 MG/0.4 ML SYRINGE SQ SCH (06:33)
[2019-05-02] MEDS: Insulin LISPRO 300 UNITS/3 ML VIAL SQ SCH ×4 (07:37→20:33)
[2019-05-02] MEDS: Lactobacillus 1 EACH CAP.SPRINK PO SCH ×2 (07:48→19:56)
[2019-05-02] MEDS: Cyanocobalamin (B-12) 1,000 MCG TABLET PO SCH (07:48)
[2019-05-02] MEDS: Sennosides/Docusate Sodium TABLET PO PRN ×2 (07:48→20:02)
[2019-05-02] MEDS: *HR* Glimepiride 4 MG TABLET PO SCH (07:49)
[2019-05-02] MEDS: Ascorbic Acid 500 MG TABLET PO SCH ×2 (07:49→19:56)
[2019-05-02] MEDS: Furosemide 40 MG TABLET PO SCH (07:49)
[2019-05-02] MEDS: FLUoxetine 20 MG CAPSULE PO SCH (07:49)
[2019-05-02] MEDS: Insulin DETEMIR 100 UNIT/ML X5UNITS SQ SCH (07:49)
[2019-05-02] MEDS: Iron Polysaccharide Complex 150 MG CAPSULE PO SCH (07:49)
[2019-05-02] MEDS: Gabapentin 300 MG CAPSULE PO SCH ×4 (07:49→19:55)
[2019-05-02] MEDS: Cholecalciferol (D-3) 1,000 UNIT (25MCG) TABLET PO SCH (19:56)
[2019-05-02] MEDS: Vitamin B Complex/Vit C/Vit E 1 EACH TABLET PO SCH (19:56)
[2019-05-02] MEDS: [UNRECOGNIZED DRUG - OTHER] PO SCH (19:57)
[2019-05-02] MEDS: VALERIAN ROOT PO SCH (19:58)
[2019-05-02] MEDS: Melatonin 3 MG TABLET PO PRN (20:02)
[2019-05-03] MEDS: Ampicillin/Sulbactam 3,000 MG in 0.9 % Sodium Chloride Mini Bag 100 ML IVPB SCH ×4 (03:41→20:18)
[2019-05-03] MEDS: *HR* Enoxaparin 40 MG/0.4 ML SYRINGE SQ SCH (06:01)
[2019-05-03] MEDS: Acetaminophen 325 MG TABLET PO PRN (06:06)
[2019-05-03] MEDS: Gabapentin 300 MG CAPSULE PO SCH ×4 (08:20→20:24)
[2019-05-03] MEDS: Cyanocobalamin (B-12) 1,000 MCG TABLET PO SCH (08:20)
[2019-05-03] MEDS: Ascorbic Acid 500 MG TABLET PO SCH ×2 (08:21→20:25)
[2019-05-03] MEDS: Furosemide 40 MG TABLET PO SCH (08:21)
[2019-05-03] MEDS: FLUoxetine 20 MG CAPSULE PO SCH (08:21)
[2019-05-03] MEDS: Iron Polysaccharide Complex 150 MG CAPSULE PO SCH (08:21)
[2019-05-03] MEDS: Lactobacillus 1 EACH CAP.SPRINK PO SCH ×2 (08:21→20:23)
[2019-05-03] MEDS: *HR* Glimepiride 4 MG TABLET PO SCH (08:21)
[2019-05-03] MEDS: Insulin LISPRO 300 UNITS/3 ML VIAL SQ SCH ×4 (08:22→20:35)
[2019-05-03] MEDS: Insulin DETEMIR 100 UNIT/ML X5UNITS SQ SCH (08:34)
[2019-05-03] MEDS: Cholecalciferol (D-3) 1,000 UNIT (25MCG) TABLET PO SCH (20:25)
[2019-05-03] MEDS: Vitamin B Complex/Vit C/Vit E 1 EACH TABLET PO SCH (20:25)
[2019-05-03] MEDS: VALERIAN ROOT PO SCH (20:33)
[2019-05-03] MEDS: clonazePAM 0.5 MG TABLET PO PRN (20:33)
[2019-05-03] MEDS: [UNRECOGNIZED DRUG - OTHER] PO SCH (20:33)
[2019-05-03] MEDS: Melatonin 3 MG TABLET PO PRN (20:34)
[2019-05-04] MEDS: Ampicillin/Sulbactam 3,000 MG in 0.9 % Sodium Chloride Mini Bag 100 ML IVPB SCH ×4 (02:31→20:23)
[2019-05-04] MEDS: *HR* Enoxaparin 40 MG/0.4 ML SYRINGE SQ SCH (05:37)
[2019-05-04] MEDS: FLUoxetine 20 MG CAPSULE PO SCH (08:33)
[2019-05-04] MEDS: Gabapentin 300 MG CAPSULE PO SCH ×4 (08:33→20:21)
[2019-05-04] MEDS: Iron Polysaccharide Complex 150 MG CAPSULE PO SCH (08:33)
[2019-05-04] MEDS: Ascorbic Acid 500 MG TABLET PO SCH ×2 (08:34→20:21)
[2019-05-04] MEDS: *HR* Glimepiride 4 MG TABLET PO SCH (08:34)
[2019-05-04] MEDS: Furosemide 40 MG TABLET PO SCH (08:34)
[2019-05-04] MEDS: Lactobacillus 1 EACH CAP.SPRINK PO SCH ×2 (08:34→20:21)
[2019-05-04] MEDS: Cyanocobalamin (B-12) 1,000 MCG TABLET PO SCH (08:34)
[2019-05-04] MEDS: Insulin LISPRO 300 UNITS/3 ML VIAL SQ SCH ×4 (09:03→20:20)
[2019-05-04] MEDS: Insulin DETEMIR 100 UNIT/ML X5UNITS SQ SCH (09:04)
[2019-05-04 09:56] LABS: Albumin 3.2 g/dL (3.5-5.7); Albumin/Globulin Ratio 1.1 (1.1-2.2); Bilirubin,Total 0.3 mg/dL (0.3-1.0); Calcium 8.4 mg/dL (8.6-10.3); Potassium 3.6 mEq/L (3.5-5.1); Total Protein 6.2 g/dL (6.4-8.9)
[2019-05-04 12:56] LABS: Basophils # 0.1 K/mcL (0.0-0.2); Basophils % 0.9 %; Eosinophils # 0.5 K/mcL (0.0-0.6); Hematocrit 33.8 % (35.3-44.9); Hemoglobin 10.7 g/dL (11.5-15.4); Immature Granulocytes % 0.5 % (0-4); Lymphocytes # 2.6 K/mcL (0.6-4.6); Lymphocytes % 31.5 %; Mean Corpuscular HGB Conc 31.7 g/dL (31.6-35.5); Mean Corpuscular Hemoglobin 27.1 pg (28.0-33.3); Mean Corpuscular Volume 85.6 fL (83.0-100.0); Mean Platelet Volume 9.5 fL (9.4-12.4); Monocytes # 0.6 K/mcL (0.0-1.3); Monocytes % 6.7 %; Neutrophils # 4.5 K/mcL (1.6-8.9); Platelet Count 235 K/mcL (140-400); Red Blood Count 3.95 M/mcL (3.82-4.97); Red Cell Distribution Width 14.6 % (11.5-14.5); Segmented Neutrophils % 54.4 %; White Blood Count 8.2 K/mcL (4.3-11.1)
[2019-05-04] MEDS: Vitamin B Complex/Vit C/Vit E 1 EACH TABLET PO SCH (20:21)
[2019-05-04] MEDS: Melatonin 3 MG TABLET PO PRN (20:22)
[2019-05-04] MEDS: Cholecalciferol (D-3) 1,000 UNIT (25MCG) TABLET PO SCH (20:22)
[2019-05-04] MEDS: Sennosides/Docusate Sodium TABLET PO PRN (20:22)
[2019-05-04] MEDS: VALERIAN ROOT PO SCH (20:23)
[2019-05-04] MEDS: [UNRECOGNIZED DRUG - OTHER] PO SCH (20:23)
[2019-05-05] MEDS: Ampicillin/Sulbactam 3,000 MG in 0.9 % Sodium Chloride Mini Bag 100 ML IVPB SCH ×4 (02:15→20:25)
[2019-05-05] MEDS: *HR* Enoxaparin 40 MG/0.4 ML SYRINGE SQ SCH (05:12)
[2019-05-05] MEDS: Furosemide 40 MG TABLET PO SCH (07:51)
[2019-05-05] MEDS: Gabapentin 300 MG CAPSULE PO SCH ×4 (07:51→20:24)
[2019-05-05] MEDS: Cyanocobalamin (B-12) 1,000 MCG TABLET PO SCH (07:51)
[2019-05-05] MEDS: Iron Polysaccharide Complex 150 MG CAPSULE PO SCH (07:51)
[2019-05-05] MEDS: FLUoxetine 20 MG CAPSULE PO SCH (07:51)
[2019-05-05] MEDS: Ascorbic Acid 500 MG TABLET PO SCH ×2 (07:52→20:24)
[2019-05-05] MEDS: Lactobacillus 1 EACH CAP.SPRINK PO SCH ×2 (07:52→20:23)
[2019-05-05] MEDS: *HR* Glimepiride 4 MG TABLET PO SCH (07:52)
[2019-05-05] MEDS: Insulin LISPRO 300 UNITS/3 ML VIAL SQ SCH ×4 (07:54→20:25)
[2019-05-05] MEDS: Insulin DETEMIR 100 UNIT/ML X5UNITS SQ SCH (08:13)
[2019-05-05] MEDS: [UNRECOGNIZED DRUG - OTHER] PO SCH (20:24)
[2019-05-05] MEDS: Sennosides/Docusate Sodium TABLET PO SCH (20:24)
[2019-05-05] MEDS: VALERIAN ROOT PO SCH (20:24)
[2019-05-05] MEDS: Vitamin B Complex/Vit C/Vit E 1 EACH TABLET PO SCH (20:24)
[2019-05-05] MEDS: Cholecalciferol (D-3) 1,000 UNIT (25MCG) TABLET PO SCH (20:24)
[2019-05-05] MEDS: Melatonin 3 MG TABLET PO PRN (20:25)
[2019-05-06] MEDS: Ampicillin/Sulbactam 3,000 MG in 0.9 % Sodium Chloride Mini Bag 100 ML IVPB SCH ×3 (02:42→14:24)
[2019-05-06] MEDS: *HR* Enoxaparin 40 MG/0.4 ML SYRINGE SQ SCH (05:17)
[2019-05-06] MEDS: Insulin LISPRO 300 UNITS/3 ML VIAL SQ SCH ×4 (07:46→20:26)
[2019-05-06] MEDS: Gabapentin 300 MG CAPSULE PO SCH ×4 (07:50→20:25)
[2019-05-06] MEDS: Furosemide 40 MG TABLET PO SCH (07:51)
[2019-05-06] MEDS: FLUoxetine 20 MG CAPSULE PO SCH (07:51)
[2019-05-06] MEDS: Cyanocobalamin (B-12) 1,000 MCG TABLET PO SCH (07:51)
[2019-05-06] MEDS: Iron Polysaccharide Complex 150 MG CAPSULE PO SCH (07:51)
[2019-05-06] MEDS: *HR* Glimepiride 4 MG TABLET PO SCH (07:51)
[2019-05-06] MEDS: Sennosides/Docusate Sodium TABLET PO SCH ×2 (07:51→20:24)
[2019-05-06] MEDS: Ascorbic Acid 500 MG TABLET PO SCH ×2 (07:51→20:24)
[2019-05-06] MEDS: Lactobacillus 1 EACH CAP.SPRINK PO SCH ×2 (07:51→20:24)
[2019-05-06] MEDS: Insulin DETEMIR 100 UNIT/ML X5UNITS SQ SCH (07:57)
[2019-05-06] MEDS: VALERIAN ROOT PO SCH (19:30)
[2019-05-06] MEDS: [UNRECOGNIZED DRUG - OTHER] PO SCH (19:30)
[2019-05-06] MEDS: Ampicillin/Sulbactam 3,000 MG in 0.9 % Sodium Chloride 100 ML IVPB SCH (20:20)
[2019-05-06] MEDS: Vitamin B Complex/Vit C/Vit E 1 EACH TABLET PO SCH (20:24)
[2019-05-06] MEDS: Melatonin 3 MG TABLET PO PRN (20:25)
[2019-05-06] MEDS: Cholecalciferol (D-3) 1,000 UNIT (25MCG) TABLET PO SCH (20:26)
[2019-05-07] MEDS: Ampicillin/Sulbactam 3,000 MG in 0.9 % Sodium Chloride 100 ML IVPB SCH ×4 (02:42→21:16)
[2019-05-07] MEDS: *HR* Enoxaparin 40 MG/0.4 ML SYRINGE SQ SCH (06:20)
[2019-05-07] MEDS: Furosemide 40 MG TABLET PO SCH (08:06)
[2019-05-07] MEDS: *HR* Glimepiride 4 MG TABLET PO SCH (08:06)
[2019-05-07] MEDS: Iron Polysaccharide Complex 150 MG CAPSULE PO SCH (08:07)
[2019-05-07] MEDS: Gabapentin 300 MG CAPSULE PO SCH ×4 (08:07→21:16)
[2019-05-07] MEDS: Cyanocobalamin (B-12) 1,000 MCG TABLET PO SCH (08:07)
[2019-05-07] MEDS: Lactobacillus 1 EACH CAP.SPRINK PO SCH ×2 (08:08→21:16)
[2019-05-07] MEDS: FLUoxetine 20 MG CAPSULE PO SCH (08:08)
[2019-05-07] MEDS: Ascorbic Acid 500 MG TABLET PO SCH ×2 (08:08→21:16)
[2019-05-07] MEDS: Sennosides/Docusate Sodium TABLET PO SCH ×2 (08:09→21:16)
[2019-05-07] MEDS: Insulin LISPRO 300 UNITS/3 ML VIAL SQ SCH ×4 (08:14→21:32)
[2019-05-07] MEDS: Acetaminophen 325 MG TABLET PO PRN (08:25)
[2019-05-07] MEDS: Insulin DETEMIR 100 UNIT/ML X5UNITS SQ SCH (08:25)
[2019-05-07] MEDS: Cholecalciferol (D-3) 1,000 UNIT (25MCG) TABLET PO SCH (21:15)
[2019-05-07] MEDS: Melatonin 3 MG TABLET PO PRN (21:15)
[2019-05-07] MEDS: Vitamin B Complex/Vit C/Vit E 1 EACH TABLET PO SCH (21:16)
[2019-05-07] MEDS: VALERIAN ROOT PO SCH (21:30)
[2019-05-07] MEDS: [UNRECOGNIZED DRUG - OTHER] PO SCH (21:30)
[2019-05-08] MEDS: Ampicillin/Sulbactam 3,000 MG in 0.9 % Sodium Chloride 100 ML IVPB SCH ×4 (02:57→20:33)
[2019-05-08] MEDS: *HR* Enoxaparin 40 MG/0.4 ML SYRINGE SQ SCH (06:31)
[2019-05-08] MEDS: Iron Polysaccharide Complex 150 MG CAPSULE PO SCH (08:59)
[2019-05-08] MEDS: Gabapentin 300 MG CAPSULE PO SCH ×4 (08:59→20:33)
[2019-05-08] MEDS: FLUoxetine 20 MG CAPSULE PO SCH (08:59)
[2019-05-08] MEDS: Ascorbic Acid 500 MG TABLET PO SCH ×2 (08:59→20:33)
[2019-05-08] MEDS: Cyanocobalamin (B-12) 1,000 MCG TABLET PO SCH (08:59)
[2019-05-08] MEDS: *HR* Glimepiride 4 MG TABLET PO SCH (09:00)
[2019-05-08] MEDS: Lactobacillus 1 EACH CAP.SPRINK PO SCH ×2 (09:00→20:33)
[2019-05-08] MEDS: Furosemide 40 MG TABLET PO SCH (09:00)
[2019-05-08] MEDS: Sennosides/Docusate Sodium TABLET PO SCH ×2 (09:00→20:32)
[2019-05-08] MEDS: Insulin DETEMIR 100 UNIT/ML X5UNITS SQ SCH (09:01)
[2019-05-08] MEDS: Insulin LISPRO 300 UNITS/3 ML VIAL SQ SCH ×4 (09:01→20:29)
[2019-05-08] MEDS: Vitamin B Complex/Vit C/Vit E 1 EACH TABLET PO SCH (20:32)
[2019-05-08] MEDS: Melatonin 3 MG TABLET PO PRN (20:32)
[2019-05-08] MEDS: clonazePAM 0.5 MG TABLET PO PRN (20:32)
[2019-05-08] MEDS: Cholecalciferol (D-3) 1,000 UNIT (25MCG) TABLET PO SCH (23:41)
[2019-05-08] MEDS: VALERIAN ROOT PO SCH (23:41)
[2019-05-08] MEDS: [UNRECOGNIZED DRUG - OTHER] PO SCH (23:41)
[2019-05-09] MEDS: Ampicillin/Sulbactam 3,000 MG in 0.9 % Sodium Chloride 100 ML IVPB SCH ×5 (01:01→22:15)
[2019-05-09 05:48] LABS: Basophils # 0.1 K/mcL (0.0-0.2); Basophils % 1.2 %; Eosinophils # 0.4 K/mcL (0.0-0.6); Eosinophils % 4.1 %; Hematocrit 34.1 % (35.3-44.9); Hemoglobin 10.8 g/dL (11.5-15.4); Immature Granulocytes % 0.4 % (0-4); Lymphocytes # 3.4 K/mcL (0.6-4.6); Lymphocytes % 32.8 %; Mean Corpuscular HGB Conc 31.7 g/dL (31.6-35.5); Mean Corpuscular Hemoglobin 27.3 pg (28.0-33.3); Mean Corpuscular Volume 86.1 fL (83.0-100.0); Mean Platelet Volume 9.6 fL (9.4-12.4); Monocytes # 0.7 K/mcL (0.0-1.3); Monocytes % 6.8 %; Neutrophils # 5.6 K/mcL (1.6-8.9); Platelet Count 212 K/mcL (140-400); Red Blood Count 3.96 M/mcL (3.82-4.97); Red Cell Distribution Width 14.7 % (11.5-14.5); Segmented Neutrophils % 54.7 %; White Blood Count 10.3 K/mcL (4.3-11.1)
[2019-05-09 06:02] LABS: Albumin 3.1 g/dL (3.5-5.7); Bilirubin,Total 0.3 mg/dL (0.3-1.0); Calcium 8.7 mg/dL (8.6-10.3); Potassium 3.6 mEq/L (3.5-5.1); Total Protein 6.1 g/dL (6.4-8.9)
[2019-05-09] MEDS: *HR* Enoxaparin 40 MG/0.4 ML SYRINGE SQ SCH (06:13)
[2019-05-09] MEDS: Acetaminophen 325 MG TABLET PO PRN ×2 (06:13→22:14)
[2019-05-09] MEDS: Iron Polysaccharide Complex 150 MG CAPSULE PO SCH (08:17)
[2019-05-09] MEDS: FLUoxetine 20 MG CAPSULE PO SCH (08:17)
[2019-05-09] MEDS: Furosemide 40 MG TABLET PO SCH (08:18)
[2019-05-09] MEDS: Lactobacillus 1 EACH CAP.SPRINK PO SCH ×2 (08:18→22:14)
[2019-05-09] MEDS: Insulin DETEMIR 100 UNIT/ML X5UNITS SQ SCH (08:18)
[2019-05-09] MEDS: Sennosides/Docusate Sodium TABLET PO SCH ×2 (08:18→22:14)
[2019-05-09] MEDS: Cyanocobalamin (B-12) 1,000 MCG TABLET PO SCH (08:18)
[2019-05-09] MEDS: *HR* Glimepiride 4 MG TABLET PO SCH (08:18)
[2019-05-09] MEDS: Gabapentin 300 MG CAPSULE PO SCH ×4 (08:18→22:14)
[2019-05-09] MEDS: Ascorbic Acid 500 MG TABLET PO SCH ×2 (08:18→22:14)
[2019-05-09] MEDS: Insulin LISPRO 300 UNITS/3 ML VIAL SQ SCH ×4 (08:19→22:13)
[2019-05-09] MEDS: Cholecalciferol (D-3) 1,000 UNIT (25MCG) TABLET PO SCH (22:14)
[2019-05-09] MEDS: Melatonin 3 MG TABLET PO PRN (22:14)
[2019-05-09] MEDS: clonazePAM 0.5 MG TABLET PO PRN (22:14)
[2019-05-09] MEDS: Vitamin B Complex/Vit C/Vit E 1 EACH TABLET PO SCH (22:14)
[2019-05-09] MEDS: VALERIAN ROOT PO SCH (22:15)
[2019-05-09] MEDS: [UNRECOGNIZED DRUG - OTHER] PO SCH (22:15)
[2019-05-10] MEDS: Ampicillin/Sulbactam 3,000 MG in 0.9 % Sodium Chloride 100 ML IVPB SCH ×4 (05:38→22:54)
[2019-05-10] MEDS: *HR* Enoxaparin 40 MG/0.4 ML SYRINGE SQ SCH (05:38)
[2019-05-10] MEDS: *HR* Glimepiride 4 MG TABLET PO SCH (08:30)
[2019-05-10] MEDS: Ascorbic Acid 500 MG TABLET PO SCH ×2 (08:30→21:56)
[2019-05-10] MEDS: Lactobacillus 1 EACH CAP.SPRINK PO SCH ×2 (08:30→21:55)
[2019-05-10] MEDS: Furosemide 40 MG TABLET PO SCH (08:30)
[2019-05-10] MEDS: Sennosides/Docusate Sodium TABLET PO SCH ×2 (08:30→21:57)
[2019-05-10] MEDS: Iron Polysaccharide Complex 150 MG CAPSULE PO SCH (08:30)
[2019-05-10] MEDS: FLUoxetine 20 MG CAPSULE PO SCH (08:30)
[2019-05-10] MEDS: Gabapentin 300 MG CAPSULE PO SCH ×4 (08:31→21:55)
[2019-05-10] MEDS: Cyanocobalamin (B-12) 1,000 MCG TABLET PO SCH (08:31)
[2019-05-10] MEDS: Insulin DETEMIR 100 UNIT/ML X5UNITS SQ SCH (08:50)
[2019-05-10] MEDS: Insulin LISPRO 300 UNITS/3 ML VIAL SQ SCH ×4 (08:50→21:57)
[2019-05-10] MEDS: Cholecalciferol (D-3) 1,000 UNIT (25MCG) TABLET PO SCH (21:55)
[2019-05-10] MEDS: Melatonin 3 MG TABLET PO PRN (21:56)
[2019-05-10] MEDS: Vitamin B Complex/Vit C/Vit E 1 EACH TABLET PO SCH (21:56)
[2019-05-10] MEDS: [UNRECOGNIZED DRUG - OTHER] PO SCH (22:04)
[2019-05-10] MEDS: VALERIAN ROOT PO SCH (22:05)
[2019-05-11] MEDS: *HR* Enoxaparin 40 MG/0.4 ML SYRINGE SQ SCH (05:07)
[2019-05-11] MEDS: Ampicillin/Sulbactam 3,000 MG in 0.9 % Sodium Chloride 100 ML IVPB SCH ×4 (05:08→22:53)
[2019-05-11] MEDS: FLUoxetine 20 MG CAPSULE PO SCH (08:32)
[2019-05-11] MEDS: Gabapentin 300 MG CAPSULE PO SCH ×4 (08:32→20:56)
[2019-05-11] MEDS: Sennosides/Docusate Sodium TABLET PO SCH ×2 (08:32→20:56)
[2019-05-11] MEDS: Lactobacillus 1 EACH CAP.SPRINK PO SCH ×2 (08:32→20:56)
[2019-05-11] MEDS: Iron Polysaccharide Complex 150 MG CAPSULE PO SCH (08:32)
[2019-05-11] MEDS: Furosemide 40 MG TABLET PO SCH (08:32)
[2019-05-11] MEDS: Ascorbic Acid 500 MG TABLET PO SCH ×2 (08:33→20:56)
[2019-05-11] MEDS: *HR* Glimepiride 4 MG TABLET PO SCH (08:33)
[2019-05-11] MEDS: Cyanocobalamin (B-12) 1,000 MCG TABLET PO SCH (08:33)
[2019-05-11] MEDS: Insulin LISPRO 300 UNITS/3 ML VIAL SQ SCH ×4 (08:35→20:57)
[2019-05-11] MEDS: Insulin DETEMIR 100 UNIT/ML X5UNITS SQ SCH (08:35)
[2019-05-11] MEDS: clonazePAM 0.5 MG TABLET PO PRN ×2 (12:06→20:56)
[2019-05-11] MEDS: VALERIAN ROOT PO SCH (19:54)
[2019-05-11] MEDS: [UNRECOGNIZED DRUG - OTHER] PO SCH (19:54)
[2019-05-11] MEDS: Vitamin B Complex/Vit C/Vit E 1 EACH TABLET PO SCH (20:56)
[2019-05-11] MEDS: Melatonin 3 MG TABLET PO PRN (20:56)
[2019-05-11] MEDS: Cholecalciferol (D-3) 1,000 UNIT (25MCG) TABLET PO SCH (21:01)
[2019-05-12] MEDS: *HR* Enoxaparin 40 MG/0.4 ML SYRINGE SQ SCH (05:21)
[2019-05-12] MEDS: Ampicillin/Sulbactam 3,000 MG in 0.9 % Sodium Chloride 100 ML IVPB SCH ×4 (05:21→22:36)
[2019-05-12] MEDS: Insulin LISPRO 300 UNITS/3 ML VIAL SQ SCH ×4 (08:55→22:35)
[2019-05-12] MEDS: Ascorbic Acid 500 MG TABLET PO SCH ×2 (08:56→22:34)
[2019-05-12] MEDS: FLUoxetine 20 MG CAPSULE PO SCH (08:56)
[2019-05-12] MEDS: Gabapentin 300 MG CAPSULE PO SCH ×4 (08:56→22:35)
[2019-05-12] MEDS: Sennosides/Docusate Sodium TABLET PO SCH ×2 (08:57→22:35)
[2019-05-12] MEDS: *HR* Glimepiride 4 MG TABLET PO SCH (08:57)
[2019-05-12] MEDS: Furosemide 40 MG TABLET PO SCH (08:57)
[2019-05-12] MEDS: Lactobacillus 1 EACH CAP.SPRINK PO SCH ×2 (08:57→22:34)
[2019-05-12] MEDS: Cyanocobalamin (B-12) 1,000 MCG TABLET PO SCH (08:58)
[2019-05-12] MEDS: Iron Polysaccharide Complex 150 MG CAPSULE PO SCH (08:58)
[2019-05-12] MEDS: Insulin DETEMIR 100 UNIT/ML X5UNITS SQ SCH (09:06)
[2019-05-12] MEDS: clonazePAM 0.5 MG TABLET PO PRN (12:23)
[2019-05-12] MEDS: VALERIAN ROOT PO SCH (20:02)
[2019-05-12] MEDS: [UNRECOGNIZED DRUG - OTHER] PO SCH (20:02)
[2019-05-12] MEDS: Melatonin 3 MG TABLET PO PRN (22:34)
[2019-05-12] MEDS: Vitamin B Complex/Vit C/Vit E 1 EACH TABLET PO SCH (22:35)
[2019-05-12] MEDS: Cholecalciferol (D-3) 1,000 UNIT (25MCG) TABLET PO SCH (22:35)
[2019-05-13] MEDS: Ampicillin/Sulbactam 3,000 MG in 0.9 % Sodium Chloride 100 ML IVPB SCH ×4 (04:51→22:52)
[2019-05-13] MEDS: *HR* Enoxaparin 40 MG/0.4 ML SYRINGE SQ SCH (04:51)
[2019-05-13] MEDS: Lactobacillus 1 EACH CAP.SPRINK PO SCH ×2 (08:24→22:52)
[2019-05-13] MEDS: FLUoxetine 20 MG CAPSULE PO SCH (08:24)
[2019-05-13] MEDS: *HR* Glimepiride 4 MG TABLET PO SCH (08:24)
[2019-05-13] MEDS: Ascorbic Acid 500 MG TABLET PO SCH ×2 (08:24→22:52)
[2019-05-13] MEDS: Furosemide 40 MG TABLET PO SCH (08:25)
[2019-05-13] MEDS: Cyanocobalamin (B-12) 1,000 MCG TABLET PO SCH (08:25)
[2019-05-13] MEDS: Insulin DETEMIR 100 UNIT/ML X5UNITS SQ SCH ×2 (08:25→11:13)
[2019-05-13] MEDS: Gabapentin 300 MG CAPSULE PO SCH ×4 (08:25→22:52)
[2019-05-13] MEDS: Insulin LISPRO 300 UNITS/3 ML VIAL SQ SCH ×4 (08:25→22:53)
[2019-05-13] MEDS: Sennosides/Docusate Sodium TABLET PO SCH ×2 (08:25→22:52)
[2019-05-13] MEDS: Iron Polysaccharide Complex 150 MG CAPSULE PO SCH (08:25)
[2019-05-13] MEDS: Cholecalciferol (D-3) 1,000 UNIT (25MCG) TABLET PO SCH (22:52)
[2019-05-13] MEDS: Vitamin B Complex/Vit C/Vit E 1 EACH TABLET PO SCH (22:52)
[2019-05-13] MEDS: Melatonin 3 MG TABLET PO PRN (22:52)
[2019-05-13] MEDS: clonazePAM 0.5 MG TABLET PO PRN (22:52)
[2019-05-13] MEDS: VALERIAN ROOT PO SCH (22:54)
[2019-05-13] MEDS: [UNRECOGNIZED DRUG - OTHER] PO SCH (22:54)
[2019-05-14] MEDS: *HR* Enoxaparin 40 MG/0.4 ML SYRINGE SQ SCH (05:45)
[2019-05-14] MEDS: Ampicillin/Sulbactam 3,000 MG in 0.9 % Sodium Chloride 100 ML IVPB SCH ×4 (05:46→22:59)
[2019-05-14] MEDS: Insulin LISPRO 300 UNITS/3 ML VIAL SQ SCH ×4 (09:27→20:08)
[2019-05-14] MEDS: Iron Polysaccharide Complex 150 MG CAPSULE PO SCH (09:28)
[2019-05-14] MEDS: Lactobacillus 1 EACH CAP.SPRINK PO SCH ×2 (09:28→20:08)
[2019-05-14] MEDS: Furosemide 40 MG TABLET PO SCH (09:28)
[2019-05-14] MEDS: Gabapentin 300 MG CAPSULE PO SCH ×4 (09:28→20:08)
[2019-05-14] MEDS: *HR* Glimepiride 4 MG TABLET PO SCH (09:29)
[2019-05-14] MEDS: Ascorbic Acid 500 MG TABLET PO SCH ×2 (09:29→20:07)
[2019-05-14] MEDS: FLUoxetine 20 MG CAPSULE PO SCH (09:29)
[2019-05-14] MEDS: Sennosides/Docusate Sodium TABLET PO SCH ×2 (09:29→20:08)
[2019-05-14] MEDS: Cyanocobalamin (B-12) 1,000 MCG TABLET PO SCH (09:29)
[2019-05-14] MEDS: Acetaminophen 325 MG TABLET PO PRN ×2 (09:30→22:59)
[2019-05-14] MEDS: Insulin DETEMIR 100 UNIT/ML X5UNITS SQ SCH (09:46)
[2019-05-14] MEDS: [UNRECOGNIZED DRUG - OTHER] PO SCH (19:50)
[2019-05-14] MEDS: VALERIAN ROOT PO SCH (19:50)
[2019-05-14] MEDS: Melatonin 3 MG TABLET PO PRN (20:06)
[2019-05-14] MEDS: clonazePAM 0.5 MG TABLET PO PRN (20:07)
[2019-05-14] MEDS: Vitamin B Complex/Vit C/Vit E 1 EACH TABLET PO SCH (20:08)
[2019-05-14] MEDS: Cholecalciferol (D-3) 1,000 UNIT (25MCG) TABLET PO SCH (20:08)
[2019-05-15] MEDS: Ampicillin/Sulbactam 3,000 MG in 0.9 % Sodium Chloride 100 ML IVPB SCH ×4 (04:56→23:05)
[2019-05-15] MEDS: *HR* Enoxaparin 40 MG/0.4 ML SYRINGE SQ SCH (04:56)
[2019-05-15] MEDS: Insulin DETEMIR 100 UNIT/ML X5UNITS SQ SCH (07:21)
[2019-05-15] MEDS: Insulin LISPRO 300 UNITS/3 ML VIAL SQ SCH ×4 (07:21→20:54)
[2019-05-15] MEDS: Sennosides/Docusate Sodium TABLET PO SCH ×2 (07:22→20:54)
[2019-05-15] MEDS: *HR* Glimepiride 4 MG TABLET PO SCH (07:22)
[2019-05-15] MEDS: Lactobacillus 1 EACH CAP.SPRINK PO SCH ×2 (07:22→20:54)
[2019-05-15] MEDS: Cyanocobalamin (B-12) 1,000 MCG TABLET PO SCH (07:22)
[2019-05-15] MEDS: FLUoxetine 20 MG CAPSULE PO SCH (07:22)
[2019-05-15] MEDS: Iron Polysaccharide Complex 150 MG CAPSULE PO SCH (07:23)
[2019-05-15] MEDS: Furosemide 40 MG TABLET PO SCH (07:23)
[2019-05-15] MEDS: Gabapentin 300 MG CAPSULE PO SCH ×4 (07:23→20:55)
[2019-05-15] MEDS: Ascorbic Acid 500 MG TABLET PO SCH ×2 (07:23→20:54)
[2019-05-15] MEDS: VALERIAN ROOT PO SCH (20:54)
[2019-05-15] MEDS: Vitamin B Complex/Vit C/Vit E 1 EACH TABLET PO SCH (20:54)
[2019-05-15] MEDS: [UNRECOGNIZED DRUG - OTHER] PO SCH (20:54)
[2019-05-15] MEDS: Acetaminophen 325 MG TABLET PO PRN (20:55)
[2019-05-15] MEDS: clonazePAM 0.5 MG TABLET PO PRN (20:55)
[2019-05-15] MEDS: Melatonin 3 MG TABLET PO PRN (20:55)
[2019-05-15] MEDS: Cholecalciferol (D-3) 1,000 UNIT (25MCG) TABLET PO SCH (20:55)
[2019-05-16] MEDS: Ampicillin/Sulbactam 3,000 MG in 0.9 % Sodium Chloride 100 ML IVPB SCH ×2 (04:55→13:49)
[2019-05-16] MEDS: Insulin DETEMIR 100 UNIT/ML X5UNITS SQ SCH (05:58)
[2019-05-16] MEDS: Cyanocobalamin (B-12) 1,000 MCG TABLET PO SCH (05:58)
[2019-05-16] MEDS: Insulin LISPRO 300 UNITS/3 ML VIAL SQ SCH ×4 (05:58→21:04)
[2019-05-16] MEDS: Iron Polysaccharide Complex 150 MG CAPSULE PO SCH (05:58)
[2019-05-16] MEDS: *HR* Enoxaparin 40 MG/0.4 ML SYRINGE SQ SCH (05:58)
[2019-05-16] MEDS: FLUoxetine 20 MG CAPSULE PO SCH (05:59)
[2019-05-16] MEDS: Lactobacillus 1 EACH CAP.SPRINK PO SCH ×2 (05:59→20:57)
[2019-05-16] MEDS: Ascorbic Acid 500 MG TABLET PO SCH ×2 (05:59→21:04)
[2019-05-16] MEDS: Gabapentin 300 MG CAPSULE PO SCH ×4 (05:59→20:56)
[2019-05-16] MEDS: Furosemide 40 MG TABLET PO SCH (05:59)
[2019-05-16] MEDS: *HR* Glimepiride 4 MG TABLET PO SCH (05:59)
[2019-05-16] MEDS: Sennosides/Docusate Sodium TABLET PO SCH ×2 (05:59→20:57)
[2019-05-16 06:10] LABS: Basophils # 0.1 K/mcL (0.0-0.2); Basophils % 1.1 %; Eosinophils # 0.4 K/mcL (0.0-0.6); Hematocrit 35.3 % (35.3-44.9); Hemoglobin 11.2 g/dL (11.5-15.4); Immature Granulocytes % 0.3 % (0-4); Lymphocytes # 3.2 K/mcL (0.6-4.6); Lymphocytes % 34.3 %; Mean Corpuscular HGB Conc 31.7 g/dL (31.6-35.5); Mean Corpuscular Hemoglobin 27.3 pg (28.0-33.3); Mean Corpuscular Volume 86.1 fL (83.0-100.0); Mean Platelet Volume 9.9 fL (9.4-12.4); Monocytes # 0.5 K/mcL (0.0-1.3); Monocytes % 5.2 %; Neutrophils # 5.1 K/mcL (1.6-8.9); Platelet Count 224 K/mcL (140-400); Red Cell Distribution Width 14.6 % (11.5-14.5); Segmented Neutrophils % 55.1 %; White Blood Count 9.2 K/mcL (4.3-11.1)
[2019-05-16 06:30] LABS: Albumin 3.4 g/dL (3.5-5.7); Albumin/Globulin Ratio 1.1 (1.1-2.2); Bilirubin,Total 0.3 mg/dL (0.3-1.0); Calcium 8.8 mg/dL (8.6-10.3); Globulin 3.1 g/dL (2.4-3.5); Potassium 3.6 mEq/L (3.5-5.1); Total Protein 6.5 g/dL (6.4-8.9)
[2019-05-16] MEDS: Melatonin 3 MG TABLET PO PRN (20:56)
[2019-05-16] MEDS: Cholecalciferol (D-3) 1,000 UNIT (25MCG) TABLET PO SCH (20:57)
[2019-05-16] MEDS: Acetaminophen 325 MG TABLET PO PRN (20:57)
[2019-05-16] MEDS: VALERIAN ROOT PO SCH (21:03)
[2019-05-16] MEDS: [UNRECOGNIZED DRUG - OTHER] PO SCH (21:03)
[2019-05-16] MEDS: Vitamin B Complex/Vit C/Vit E 1 EACH TABLET PO SCH (21:04)
[2019-05-16] MEDS: clonazePAM 0.5 MG TABLET PO PRN (21:04)
[2019-05-17] MEDS: *HR* Enoxaparin 40 MG/0.4 ML SYRINGE SQ SCH (06:17)
[2019-05-17] MEDS: Insulin LISPRO 300 UNITS/3 ML VIAL SQ SCH ×4 (08:32→21:26)
[2019-05-17] MEDS: Insulin DETEMIR 100 UNIT/ML X5UNITS SQ SCH (08:32)
[2019-05-17] MEDS: Iron Polysaccharide Complex 150 MG CAPSULE PO SCH (08:33)
[2019-05-17] MEDS: Lactobacillus 1 EACH CAP.SPRINK PO SCH ×2 (08:33→22:00)
[2019-05-17] MEDS: Gabapentin 300 MG CAPSULE PO SCH ×4 (08:33→22:00)
[2019-05-17] MEDS: FLUoxetine 20 MG CAPSULE PO SCH (08:33)
[2019-05-17] MEDS: *HR* Glimepiride 4 MG TABLET PO SCH (08:33)
[2019-05-17] MEDS: Cyanocobalamin (B-12) 1,000 MCG TABLET PO SCH (08:33)
[2019-05-17] MEDS: Furosemide 40 MG TABLET PO SCH (08:34)
[2019-05-17] MEDS: Sennosides/Docusate Sodium TABLET PO SCH ×2 (08:34→22:00)
[2019-05-17] MEDS: Ascorbic Acid 500 MG TABLET PO SCH ×2 (08:34→22:00)
[2019-05-17] MEDS ORDERED: cloNIDine HCl 0.1 MG TABLET PO PRN (08:43)
[2019-05-17] MEDS: clonazePAM 0.5 MG TABLET PO PRN ×2 (11:08→22:00)
[2019-05-17] MEDS: [UNRECOGNIZED DRUG - OTHER] PO SCH (21:26)
[2019-05-17] MEDS: VALERIAN ROOT PO SCH (21:26)
[2019-05-17] MEDS: Vitamin B Complex/Vit C/Vit E 1 EACH TABLET PO SCH (22:00)
[2019-05-17] MEDS: Cholecalciferol (D-3) 1,000 UNIT (25MCG) TABLET PO SCH (22:00)
[2019-05-17] MEDS: Melatonin 3 MG TABLET PO PRN (22:00)
[2019-05-17] MEDS: Acetaminophen 325 MG TABLET PO PRN (22:00)
[2019-05-18] MEDS: *HR* Enoxaparin 40 MG/0.4 ML SYRINGE SQ SCH (06:03)
[2019-05-18 07:52] VITALS: BP 116/66
[2019-05-18] MEDS: Lactobacillus 1 EACH CAP.SPRINK PO SCH (09:07)
[2019-05-18] MEDS: FLUoxetine 20 MG CAPSULE PO SCH (09:07)
[2019-05-18] MEDS: Ascorbic Acid 500 MG TABLET PO SCH (09:07)
[2019-05-18] MEDS: Sennosides/Docusate Sodium TABLET PO SCH (09:07)
[2019-05-18] MEDS: *HR* Glimepiride 4 MG TABLET PO SCH (09:07)
[2019-05-18] MEDS: Gabapentin 300 MG CAPSULE PO SCH ×2 (09:07→12:47)
[2019-05-18] MEDS: Cyanocobalamin (B-12) 1,000 MCG TABLET PO SCH (09:07)
[2019-05-18] MEDS: Furosemide 40 MG TABLET PO SCH (09:08)
[2019-05-18] MEDS: Iron Polysaccharide Complex 150 MG CAPSULE PO SCH (09:08)
[2019-05-18] MEDS: Insulin LISPRO 300 UNITS/3 ML VIAL SQ SCH ×2 (09:10→12:47)
[2019-05-18] MEDS: clonazePAM 0.5 MG TABLET PO PRN (09:16)
[2019-05-18] MEDS: Insulin DETEMIR 100 UNIT/ML X5UNITS SQ SCH (09:16)
[2019-05-18] MEDS: Acetaminophen 325 MG TABLET PO PRN (09:16)
== END 2019-05-18 16:45 | disposition home or self-care (01) | DRG 638 ==
LOC: INPGRE 18:37